=== PATIENT | female | born 1940 | race Caucasian/White ===

== ENCOUNTER 2016-09-19 14:37 | Inpatient (IN) | payer MEDICARE, OTHER ==
[2016-09-19] VITALS (8 sets, daily range): BP systolic 150–167; BP diastolic 68–95; PULSE 67–76; RESP 17–24; O2SAT 92–98
[~2016-09-19] VITALS: Ht 157.5 cm; Wt 89.4 kg
--- NOTE | 2016-09-19 15:09 | ED.REPORT ---
HPI-General Illness Date of Service Sep 19, 2016 ED Provider: Robin Covarrubias MD The patient is a 75 year old female with history of COPD uses 2L O2 PRN, hypertension, hyperlipidemia, coronary artery disease s/p stenting, and prior CTA with no residual deficits, who was sent to the emergency department after she had a failed outpatient stress test prior to arrival. The patient had decreased O2 sats and experienced chest pain and dyspnea during the test. She was on the treadmill for less than 2 minutes before she needed to stop. Her symptoms are worse with lying flat or exertion. When in the emergency department she also complains of blurred vision and headache. She was initially seen by the experimental mechanic [employer] for recent breathing problems. She denies history of a blood clot. Nursing Notes Stated Complaint: DECREASED 02 STAT Chief Complaint: Respiratory Distress Nursing Notes Reviewed: Yes Allergies: Coded Allergies: Penicillins (Verified Allergy, Severe, 09/19/16) codeine (Verified Allergy, Severe, 09/19/16) iodine (Verified Allergy, Severe, 09/19/16) ramipril (Verified Allergy, Severe, 09/19/16) General Time Seen by MD: 15:06 Chief Complaint Other (failed stress test) Hx Obtained From: Patient, Spouse Arrived By: Wheelchair Sudden in Onset?: Yes Onset Occurred: Just prior to arrival Symptom Duration: Since onset Location: : Chest: Head Quality: Painful Severity: Current: Moderate Severity: Maximum: Severe Relieved by: Rest Recent Healthcare: Recent doctor visit, Prior workup Similar Sx Previous: Yes Past Medical History Past Medical History Notes: PCP: Dr. Jackson in [place] [employer]: Dr. Bryan Past Medical History COPD on 2L O2 Skin cancer - resolved CVA Hypertension Hyperlipidemia Coronary artery disease Denies: Diabetes mellitus Past Surgical History Cardiac stents Family History Noncontributory Smoking History Former Smoker Social History Other Social History: Good social support, Local resident Ambulatory Status Independent Review of Systems Full Review of Systems Eyes: Reports: Blurred bilateral Respiratory: Reports: Dyspnea on exertion, Shortness of breath Cardiovascular: Reports: Chest pain, Dyspnea on exertion Neurologic: Reports: Headache, Vision change Complete sys rev & neg: except as marked. Physical Exam Vital Signs Vital Signs Date Time Temp Pulse Resp B/P Pulse Ox O2 Delivery O2 Flow Rate FiO2 09/19/16 16:49 70 17 150/83 93 Nasal Cannula 2 09/19/16 14:44 36.4 76 18 167/95 94 Nasal Cannula 2 Initial VS: Reviewed Head / Eyes: Atraumatic, Normocephalic, PERRL ENT: Mucous membranes moist, Conjunctiva normal, No scleral icterus Neck: Supple, Non-tender, Full range of motion Abdomen / GI: Soft, Non-tender, No guarding, No rebound, No distention Lymphatic: No lymphadenopathy Extremities: Vascular intact, Neuro intact Skin: Warm, Dry, No cyanosis Neurologic: Alert, Oriented, Nonfocal Psychiatric: Mood/affect normal, Behavior normal, Normal thought content General/Constitutional: Awake, Alert, Cooperative Respiratory / Chest: No respiratory distress Rales / Rhonchi: Positive: Rales R base Cardiovascular: Heart rate NL, Regular rhythm, Heart sounds NL, No gallop, No murmurs, No rubs, Cap refill not delayed, Peripheral circulation NL, Pulses = bilaterally, No gross BP differential Interpretation & Diagnostics Lab Results Interpretation Result Diagram: 09/19/16 1623 09/19/16 1623 Test 09/19/16 15:08 09/19/16 16:23 Hold Urine Received (Received) White Blood Count 7.5th/mm3 (3.8-10.1) Red Blood Count 4.03mil/mm3 (3.90-5.20) Hemoglobin 13.7g/dL (12.0-15.6) Hematocrit 41.8% (35.0-46.0) Mean Corpuscular Volume 103.7fL (81-100) Mean Corpuscular Hemoglobin 34.0pg (27.0-35.0) Mean Corpuscular Hemoglobin Concent 32.8% (32.0-37.0) Red Cell Distribution Width 13.3% (12.3-15.4) Platelet Count 248bil/L (150-400) Neutrophils (%) (Auto) 70.1% (40-74) Lymphocytes (%) (Auto) 16.6% (14-46) Monocytes (%) (Auto) 10.2% (4-12) Eosinophils (%) (Auto) 2.3% (0-5) Basophils (%) (Auto) 0.4% (0-3) D-Dimer 1.47mg/L FEU (<0.50) Sodium Level 139mEq/L (134-144) Potassium Level 4.2mEq/L (3.5-5.2) Chloride Level 98mEq/L (97-108) Carbon Dioxide Level 25mmol/L (18-29) Blood Urea Nitrogen 11mg/dL (8-27) Creatinine 0.50mg/dL (0.57-1.00) Estimat Glomerular Filtration Rate 171mL/min (>59) Glucose Level 96mg/dL (60-99) Calcium Level 9.3mg/dL (8.5-10.1) Magnesium Level 1.9mg/dL (1.6-2.6) Total Bilirubin 0.5mg/dL (0.0-1.2) Aspartate Amino Transf (AST/SGOT) 23U/L (0-50) Alanine Aminotransferase (ALT/SGPT) 15U/L (0-32) Alkaline Phosphatase 85U/L (25-165) Troponin T < 0.010ug/L (0.0-0.011) Total Protein 6.9g/dL (6.4-8.4) Albumin 3.8g/dL (3.4-5.0) Hold Hunter Top Tube Received (Received) ECG Interpretation ECG Interpretation: Sinus rhythm with a rate of 70 bpm Multiple PVCs Time: 15:41 Interpreted by: ED physician X-Ray Chest Interpretation Chest Xray Interpretation: IMPRESSION: 1. Cardiomegaly with mild vascular congestion. 2. Possible left basilar scarring/atelectasis. Superimposed pneumonia cannot be entirely excluded. Dictated by: Lenny Rodriguez M.D. on 09/19/2016 at 15:05 Interpretation / Wet Read by: Interpret - Radiologist Re-Eval/Medical Decision Med Decision/Clinical Course It is not clear to me whether or not this woman's symptoms are related to pulmonary embolism or coronary ischemia or COPD exacerbation. She failed her stress test today which of course begs the question of coronary ischemia. Her d -dimer is elevated and therefore I feel the need to definitively exclude pulmonary embolism with imaging. Unfortunately, she is iodine allergic and will require nuclear medicine scanning to evaluate pulmonary embolism. I am treating her with Lovenox for now while were waiting for the nuclear medicines test to be done. Based on her rule out labs over the next 24 hours the decision might be made regarding whether or not to pursue cardiac ischemia as the cause for her symptoms. For now we will admit her to telemetry and close observation. Source of Hx: Old records, Family, Private physician Time of Eval: 15:21 Re-Evaluation/Progress Note: Discussed plan for workup and admission. All questions were addressed. Time of Eval: 17:25 Re-Evaluation/Progress Note: Discussed plan for lung scan. Consultation : Referral / Consult Name: Tremaine Levin Consulted With: Hospitalist Requested Call at: 17:55 Service Coordinator: Will see patient, Agrees with eval, Agrees with plan, Accepts admit Counseled Regarding: Diagnosis, Lab results, Need for admission Discharge & Departure Primary Impression: Positive cardiac stress test Additional Impressions: Dyspnea Dyspnea type: dyspnea on exertion Qualified Code: R06.09 - Other forms of dyspnea Chest pain Chest pain type: unspecified Qualified Code: R07.9 - Chest pain, unspecified Disposition: ADMITTED TO HOSPITAL Discharge Condition All VS Reviewed: Yes Condition: Stable Referrals: Greg Jackson MD (PCP) Scribshanice Attestation Portions of this note were transcribed by Yarelis Vitale and Pooja Crowell. I, Dr. Coavrrubias personally performed the history, physical exam and medical decision-making; I reviewed and confirmed the accuracy of the information in the transcribed note. Signed by: Silvana Yancey, 09/19/2016 at 1800. Signed by: Silvana Goins, 09/19/16 1800. copies to: Greg Jackson MD, Kirk H MD Sep 19, 2016 15:09 Yarelis Vitale Sep 19, 2016 15:14 POOJA CROWELL Sep 19, 2016 17:57
[2016-09-19] MEDS ORDERED: DULoxetine 20 mg DR Capsule PO ONE (16:00)
--- NOTE | 2016-09-19 16:10 | DRSVH ---
PROCEDURE: X-RAY CHEST ONE VIEW, PORTABLE ([id number]) INDICATIONS: dyspnea TECHNIQUE: One view of the chest was acquired. COMPARISON: [facility], CR, XR CHEST 1VW (PORTABLE), 01/06/2016, 11:21. FINDINGS: Surgical changes and devices: None. Lungs and pleura: The aeration of the lungs is similar to the prior exam. The left diaphragm is not well seen, similar to the prior exam. There may be left basilar atelectasis. No definite pneumothor ax is appreciated. The pulmonary vasculature may be slightly prominent. Mediastinum: Mediastinal contours appear normal. Heart size is enlarged. Bones and chest wall: No suspicious bony lesions. Overlying soft tissues appear unremarkable. IMPRESSION: 1. Cardiomegaly with mild vascular congestion. 2. Possible left basilar scarring/atelectasis. Superimposed pneumonia cannot be entirely excluded. Dictated by: Lenny Rodriguez M.D. on 09/19/2016 at 15:05 Approved by: Lenny Rodriguez M.D. on 09/19/2016 at 15:08
[2016-09-19 16:29] LABS: BASOPHILS % (AUTO) 0.4 % (0-3); EOSINOPHILS % (AUTO) 2.3 % (0-5); MONOCYTES % (AUTO) 10.2 % (4-12); Mean Corpuscular Volume 103.7 fL (81-100); NEUTROPHILS % (AUTO) 70.1 % (40-74); Platelet Count 248 bil/L (150-400)
[2016-09-19 17:04] LABS: Magnesium 1.9 mg/dL (1.6-2.6)
[2016-09-19 17:11] LABS: TROPONIN T < 0.010 ug/L (0.0-0.011)
[2016-09-19] MEDS ORDERED: Alum-Mag Hydrox-Simeth 30 mL Suspension PO PRN ×2 (18:10→20:15)
[2016-09-19] MEDS ORDERED: Ondansetron 2 mg/mL 2 mL Inj IVPUSH PRN ×2 (18:10→20:15)
--- NOTE | 2016-09-19 18:51 | DRSVH ---
PROCEDURE: X-RAY CHEST, TWO VIEWS ([id number]) INDICATIONS: dyspnea TECHNIQUE: 2 views of the chest were acquired. COMPARISON: [facility], CR, XR CHEST 1VW (PORTABLE), 01/06/2016, 11:21. [facility]W (PORT[facility]), 09/19/2016, 15:31. FINDINGS: Surgical changes and devices: None. Lungs and pleura: No pleural effusions or pneumothorax. Scattered scarring/atelectasis. There is soraida ear left midlung opacity probably additional platelike atelectasis. Mediastinum: Cardiac silhouette and mediastinal contours are stable. Bones and chest wall: Mild anterior wedging of a midthoracic vertebral body, technically age-indeterm inate. Soft tissues appear unremarkable. IMPRESSION: Bibasilar scarring/atelectasis. Dictated by: Padilla Wheeler M.D. on 09/19/2016 at 18:47 Approved by: Padilla Wheeler M.D. on 09/19/2016 at 18:49
--- NOTE | 2016-09-19 19:46 | PCM.HPMED ---
Subjective Date of Service Sep 19, 2016 Primary Provider: Admitting Physician: Tremaine Levin Primary Care Physician: Greg Jackson MD Attending Physician: Tremaine Levin Admit Status: From the Emergency Department Chief Complaint: Chest pain, and difficulty breathing, shortness of breath, failed her cardiac stress test today due to the symptoms History of Present Illness: The patient is a pleasant 75 y/o F with history of COPD on 2L O2 at home PRN, hypertension, hyperlipidemia, coronary artery disease s/p SC and stenting X 1 vessel in 2008, and prior CVA in 2008 with no residual deficits, who was sented to the ED after she had a failed outpatient stress test prior to arrival. The patient had decreased O2 sats and experienced chest pain and dyspnea during the test. She was on the treadmill for less than 2 minutes before she needed to stop. Of note the patient states that she has been having symptoms of chest pain and pressure going on for several months now and worsening over the past couple of weeks. She describes the chest discomfort as a heaviness that is intermittent and further describes a band like pressure/pain across the chest and beneath her breasts no causes her to feel short of breath. She states that the chest pain occurs when she exerts herself or at rest. She describes the pain as an acid or gas sensation in her chest as well. Today she states that she began to feel lower back pain in association with her chest pain which is a new finding for her. Her troponin was negative and 0.010 in the ED. Associated symptoms include diaphoresis, chills, or productive cough for the last month or so productive of yellow to clear mucus, headache and some vision changes. Patient denies fevers, sore throats, headache, abdominal pain, constipation, diarrhea, nausea and vomiting. She states that she must sleep propped up 30 in bed at night otherwise she cannot sleep or breathes. She does deny paroxysmal nocturnal dyspnea. She was initially seen by the meeting planner for recent breathing problems. She denies history of a blood clot. Of note patient has iodine allergy and received contrast once in the past which reportedly stopped her heart. Patient was told never to have contrast again. In the ED: She had a d-dimer 1.47 Vital signs: Temperature 36.4, pulse 76, respiratory rate 18, blood pressure 167 /95 with map of 119, pulse 94% on 2 L Hemogram showed: The WBCs 7.5 PMNs 70.1%, lymphs 16.6%, H/H 13.7/41.8, platelets 248 Chemistry panel showed: Creatinine 0.50, BUN 11, sodium 139, potassium 4.2, chloride 98, CO2 25, glucose 96, Troponin was 0.010 and negative Pro calcitonin and was 0.04 EKG showed: Sinus rhythm with a rate of 70 bpm, with multiple PVCs, CXR showed:1. Cardiomegaly with mild vascular congestion.2. Possible left basilar scarring/atelectasis. Superimposed pneumonia cannot be entirely excluded. Review of Systems: A comprehensive review of systems was conducted and was negative except as mentioned in history of present illness. Allergies Coded Allergies: Penicillins (Verified Allergy, Severe, 09/19/16) codeine (Verified Allergy, Severe, 09/19/16) iodine (Verified Allergy, Severe, 09/19/16) ramipril (Verified Allergy, Severe, 09/19/16) Home Medications Patient does not have her current home medications list Will need to contact pharmacy in the AM The following is from a Medication list from clinic visit on 09/05/2016 On home oxygen 2 L when necessary Cetirizine 10 mg daily Fluoxetine 20 mg capsule delayed release takes 1 capsule by mouth daily Hydrocodone 2.5% topical cream 2 times every day to the affected area Ipratropium bromide 0.02% solution nebulized every 6 hours as needed Albuterol 1.25 mg per 3 mL solution nebulized Losartan 100 mg tablet every evening Metoprolol succinate ER 50 mg tablet syndrome release in the evening Ranitidine 150 mg tablet 2 times every day rosuvastatin 10 mg tablet daily Xopenex HFA 45 g 2 puffs every 6-8 hours as needed Symbicort 160 g 4.5 g 2 puffs 2 times every day PMH COPD on 2L O2 Skin cancer - resolved CVA 2008 SC 2008 Hypertension Hyperlipidemia Coronary artery disease Surgical History Cardiac stents 1 Family History Mother obesity, cardiac disease, SC Father unknown health issues to identify her Social History Hx Alcohol Use: Yes (rare) Hx Substance Use: No Hx Tobacco Use: Yes (Quit in 2002) Smoking Status: Former Smoker (20 years 2 packs per day) Exam Vital Signs Vital Sign - Last Date Time Temp Pulse Resp B/P Pulse Ox O2 Delivery O2 Flow Rate FiO2 09/19/16 19:25 72 20 162/88 95 Room Air 2 09/19/16 14:44 36.4 Exam General: Oriented 3, in moderate distress sitting at the side of the bed leaning somewhat forward, breathing is labored. HEENT: NC/AT, eyes, pupils pinpoint, PERRLA, EOMI, neck, soft supple, no adenopathy, no JVD, no masses, no thyromegaly, throat mucous membranes pink and moist, no erythema, no exudates, no tonsillar swelling, no uvular deviation. Lungs: Bilateral wheezes, lung bases with crackles no rhonchi, no adventitious lung sounds, no use of accessory muscles of respiration, good air movement, good respiratory effort. Heart: Regular rate and rhythm, no murmur, S1-S2 present, no rub, no click, no distant heart sounds, Abdomen: Soft, nontender, nondistended, bowel sounds active, no rebound, no guarding, and is obese Genitourinary: No CVA tenderness, no suprapubic tenderness, no Gonzalez catheter, Extremities: pulses diminished but equal and symmetric lower extremity including radial and dorsalis pedis, no edema, chronic skin changes secondary to prior history of lower extremity skin swelling Neurologic: Grossly neurologically intact, speaking in full sentences, no focal neurological signs, Skin: Skin on legs is scaly and erythematous but not warm to touch. Psychiatric: mood and affect are congruent and appropriate. Lab and Diagnostics Result Diagram: 09/19/16 1623 09/19/16 1623 X-Rays, CTs and MRIs Date of Service: 09/19/16 1717 PROCEDURE: X-RAY CHEST, TWO VIEWS Surgical changes and devices: None. Lungs and pleura: No pleural effusions or pneumothorax. Scattered scarring/ atelectasis. There is linear left midlung opacity probably additional platelike atelectasis. Mediastinum: Cardiac silhouette and mediastinal contours are stable. Bones and chest wall: Mild anterior wedging of a midthoracic vertebral body, technically age-indeterminate. Soft tissues appear unremarkable. IMPRESSION: Bibasilar scarring/atelectasis. Dictated by: Padilla Wheeler M.D. on 09/19/2016 at 18:47 Approved by: Padilla Wheeler M.D. on 09/19/2016 at 18:49 Date of Service: 09/19/16 1526 PROCEDURE: X-RAY CHEST ONE VIEW, PORTABLE INDICATIONS: dyspnea Surgical changes and devices: None. Lungs and pleura: The aeration of the lungs is similar to the prior exam. The left diaphragm is not well seen, similar to the prior exam. There may be left basilar atelectasis. No definite pneumothorax is appreciated. The pulmonary vasculature may be slightly prominent. Mediastinum: Mediastinal contours appear normal. Heart size is enlarged. Bones and chest wall: No suspicious bony lesions. Overlying soft tissues appear unremarkable. IMPRESSION: 1. Cardiomegaly with mild vascular congestion. 2. Possible left basilar scarring/atelectasis. Superimposed pneumonia cannot be entirely excluded. Dictated by: Lenny Rodriguez M.D. on 09/19/2016 at 15:05 Approved by: Lenny Rodriguez M.D. on 09/19/2016 at 15:08 Assessment & Plan # Chest pain, rule out acute coronary syndrome. - Patient failed outpatient cardiac stress test today prompting her visit to the ED. Patient went 2 minutes before having to stop to rest for shortness of breath and respiratory distress. She should experience band like chest pain and pressure across her chest during this time. - Troponin 0.010, will continue trend troponin X 3 - EKG showed: Sinus rhythm with a rate of 70 bpm, with multiple PVCs, - She has cardiac monitoring with remote telemetry - Lovenox started in ED, will transition to heparin with likely need for cath, cardiology consult by am team following VQ scan - Aspirin 325 once followed by 81 mg daily - We will wait on starting Plavix 300 mg once, followed by 75 mg daily - We will start 40 mg atorvastatin - Heart healthy diet # COPD exacerbation, present on admission, active - She is on 2 L O2 at baseline at home -Vital signs: Temperature 36.4, pulse 76, respiratory rate 18, blood pressure 167/95 with map of 119, pulse 94% on 2 L -The WBCs 7.5 PMNs 70.1%, lymphs 16.6%, H/H 13.7/41.8, platelets 248 -Pro calcitonin was 0.04 -CXR showed:1. Cardiomegaly with mild vascular congestion.2. Possible left basilar scarring/atelectasis. Superimposed pneumonia cannot be entirely excluded. -Patient with history of COPD, 20-25 of tobacco smoking 2 packs per day. -Patient was given single dose of by mouth prednisone [address] angiogram. The CT angios will not be performed as last time patient had contrast her heart stopped. -Sputum culture ordered. -ABG if needed -Continue supplemental oxygen as needed and slowly titrate off. Goal SpO2 88% - 92%. -Start 40 mg prednisone daily x 5 days. -Continue antibiotics including levofloxacin -Continue duo nebs 4 times a day while awake and albuterol nebs every 2 hours for shortness of breath. # Elevated d-dimer, present remission active - D-dimer 1.47 - Patient has contrast allergy and will avoid IV contrast. Patient states last time she had IV contrast her heart stopped. She was instructed never to have contrast again. - We will avoid CT angiogram - We will order nuclear VQ scan - We will order bilateral lower extremity Dopplers - heparin gtt - If patient's bilateral Dopplers and VQ scan are negative will contact cardiology Chronic Problems We will contact pharmacy for medication r reconciliation CVA 2008 SC 2008 Hypertension - No on home medication list Hyperlipidemia - No on home medication list Coronary artery disease -Status post stenting 2008 Disposition: Admitted to in patient service with expected length of stay greater than 2 days, secondary to severity of presenting symptoms, treatment plan, complexity of clinical work up, and risk of adverse events. CODE STATUS: Full code PCP: Dr. Greg Jackson M.D. DVT PE prophylaxis: Lovenox with pharmacy to dose for suspected PE Contact: [facility] Prophylaxis: Other (Lovenox) Resuscitation Status: CPR: Attempt Resuscitation Attending Statement The patient was seen and examined together with house staff on 09/19/2016 and I agree with the history, exam and plan as outlined in the note above. Karthik Hobbs DO Sep 19, 2016 19:46 Brandi Polo DO Sep 20, 2016 05:21
[2016-09-19 19:52] LABS: COLOR,URINE YELLOW (YELLOW)
[2016-09-19 19:53] LABS: APPEARANCE,URINE CLEAR (CLEAR,HAZY); OCCULT BLOOD,URINE NEGATIVE (NEGATIVE); PH,URINE 6.5 (5.0-8.0); UROBILINOGEN,URINE NORMAL (NORMAL)
[2016-09-19] MEDS ORDERED: 0.9% Sodium Chloride 1,000 ML IV SCH (20:05)
[2016-09-19] MEDS ORDERED: predniSONE 20 mg Tablet PO SCH (20:10)
[2016-09-19] MEDS ORDERED: Polyethylene Glycol (PEG) 17 Gm Powder PO PRN (20:15)
[2016-09-19] MEDS ORDERED: Albuterol-Ipratropium 3 mL Inhalation Solution NEB PRN (20:55)
--- NOTE | 2016-09-19 21:07 | PCM.CONPHA ---
Subjective Date of Service: Sep 19, 2016 Chest pain, and difficulty breathing, shortness of breath Reason for Pharmacy Consult: Anticoagulation Management Objective Vital Signs Date Time Temp Pulse Resp B/P Pulse Ox O2 Delivery O2 Flow Rate FiO2 09/19/16 19:43 36.7 67 22 165/68 94 Nasal Cannula 2.00 09/19/16 19:25 72 20 162/88 95 Room Air 2 09/19/16 19:18 72 20 162/88 95 Room Air 09/19/16 16:49 70 17 150/83 93 Nasal Cannula 2 09/19/16 14:44 36.4 76 18 167/95 94 Nasal Cannula 2 Weight (Kilograms): 89.400 Height (Feet): 5 Height (Inches): 2.00 Test 09/19/16 15:08 09/19/16 16:23 09/19/16 19:35 Hold Urine Received (Received) White Blood Count 7.5th/mm3 (3.8-10.1) Red Blood Count 4.03mil/mm3 (3.90-5.20) Hemoglobin 13.7g/dL (12.0-15.6) Hematocrit 41.8% (35.0-46.0) Mean Corpuscular Volume 103.7fL (81-100) Mean Corpuscular Hemoglobin 34.0pg (27.0-35.0) Mean Corpuscular Hemoglobin Concent 32.8% (32.0-37.0) Red Cell Distribution Width 13.3% (12.3-15.4) Platelet Count 248bil/L (150-400) Neutrophils (%) (Auto) 70.1% (40-74) Lymphocytes (%) (Auto) 16.6% (14-46) Monocytes (%) (Auto) 10.2% (4-12) Eosinophils (%) (Auto) 2.3% (0-5) Basophils (%) (Auto) 0.4% (0-3) D-Dimer 1.47mg/L FEU (<0.50) Sodium Level 139mEq/L (134-144) Potassium Level 4.2mEq/L (3.5-5.2) Chloride Level 98mEq/L (97-108) Carbon Dioxide Level 25mmol/L (18-29) Blood Urea Nitrogen 11mg/dL (8-27) Creatinine 0.50mg/dL (0.57-1.00) Estimat Glomerular Filtration Rate 171mL/min (>59) Glucose Level 96mg/dL (60-99) Calcium Level 9.3mg/dL (8.5-10.1) Magnesium Level 1.9mg/dL (1.6-2.6) Total Bilirubin 0.5mg/dL (0.0-1.2) Aspartate Amino Transf (AST/SGOT) 23U/L (0-50) Alanine Aminotransferase (ALT/SGPT) 15U/L (0-32) Alkaline Phosphatase 85U/L (25-165) Troponin T < 0.010ug/L (0.0-0.011) Total Protein 6.9g/dL (6.4-8.4) Albumin 3.8g/dL (3.4-5.0) Procalcitonin 0.04ng/mL (0.00-0.08) Hold Hunter Top Tube Received (Received) Urine Color Yellow (YELLOW) Urine Appearance Clear (CLEAR,HAZY) Urine pH 6.5 (5.0-8.0) Urine Specific [place] 1.005 (1.003-1.035) Urine Protein Negativemg/dL (NEG,TRACE) Urine Glucose (UA) Negativemg/dL (NEGATIVE) Urine Ketones Negativemg/dL (NEGATIVE) Urine Occult Blood Negative (NEGATIVE) Urine Nitrite Negative (NEGATIVE) Urine Bilirubin Negative (NEGATIVE) Urine Urobilinogen Normalmg/dL (NORMAL) Urine Leukocyte Esterase Negative (NEGATIVE) Urine RBC 0-2/hpf (0-2) Urine WBC 0-5/hpf (0-5) Urine Epithelial Cells Few/hpf (NONE-MOD) Urine Crystals None seen (NONE SEEN) Urine Bacteria Few/hpf (NONE-FEW) Urine Hyaline Casts None/lpf (NONE) Urine Granular Casts None seen (NONE SEEN) Urine Waxy Casts None seen (NONE SEEN) Urine Red Blood Cell Casts None seen (NONE SEEN) Urine White Blood Cell Casts None seen (NONE SEEN) Urine Mucus None seen (None Seen) Urine Trichomonas None seen (NONE SEEN) Urine Yeast None (NONE SEEN) Urinalysis Comment None Urine Culture Reflexed Not indicated Assessment/Plan Assessment/Plan ENOXAPARIN MANAGEMENT A\ 75YOU F ADMITTED FOR PE PT HISTORY OF COPD AND CAD W/ STENTS PT RECEIVED ENOXAPARIN 80MG (1MG/KG) SUBQ X 1 IN ER AT 1720 SCR=0.5 GFR=>100 Test 09/19/16 15:08 09/19/16 16:23 09/19/16 19:35 Hold Urine Received (Received) White Blood Count 7.5th/mm3 (3.8-10.1) Red Blood Count 4.03mil/mm3 (3.90-5.20) Hemoglobin 13.7g/dL (12.0-15.6) Hematocrit 41.8% (35.0-46.0) Mean Corpuscular Volume 103.7fL (81-100) Mean Corpuscular Hemoglobin 34.0pg (27.0-35.0) Mean Corpuscular Hemoglobin Concent 32.8% (32.0-37.0) Red Cell Distribution Width 13.3% (12.3-15.4) Platelet Count 248bil/L (150-400) Neutrophils (%) (Auto) 70.1% (40-74) Lymphocytes (%) (Auto) 16.6% (14-46) Monocytes (%) (Auto) 10.2% (4-12) Eosinophils (%) (Auto) 2.3% (0-5) Basophils (%) (Auto) 0.4% (0-3) D-Dimer 1.47mg/L FEU (<0.50) Sodium Level 139mEq/L (134-144) Potassium Level 4.2mEq/L (3.5-5.2) Chloride Level 98mEq/L (97-108) Carbon Dioxide Level 25mmol/L (18-29) Blood Urea Nitrogen 11mg/dL (8-27) Creatinine 0.50mg/dL (0.57-1.00) Estimat Glomerular Filtration Rate 171mL/min (>59) Glucose Level 96mg/dL (60-99) Calcium Level 9.3mg/dL (8.5-10.1) Magnesium Level 1.9mg/dL (1.6-2.6) Total Bilirubin 0.5mg/dL (0.0-1.2) Aspartate Amino Transf (AST/SGOT) 23U/L (0-50) Alanine Aminotransferase (ALT/SGPT) 15U/L (0-32) Alkaline Phosphatase 85U/L (25-165) Troponin T < 0.010ug/L (0.0-0.011) Total Protein 6.9g/dL (6.4-8.4) Albumin 3.8g/dL (3.4-5.0) Procalcitonin 0.04ng/mL (0.00-0.08) Hold Hunter Top Tube Received (Received) Urine Color Yellow (YELLOW) Urine Appearance Clear (CLEAR,HAZY) Urine pH 6.5 (5.0-8.0) Urine Specific [place] 1.005 (1.003-1.035) Urine Protein Negativemg/dL (NEG,TRACE) Urine Glucose (UA) Negativemg/dL (NEGATIVE) Urine Ketones Negativemg/dL (NEGATIVE) Urine Occult Blood Negative (NEGATIVE) Urine Nitrite Negative (NEGATIVE) Urine Bilirubin Negative (NEGATIVE) Urine Urobilinogen Normalmg/dL (NORMAL) Urine Leukocyte Esterase Negative (NEGATIVE) Urine RBC 0-2/hpf (0-2) Urine WBC 0-5/hpf (0-5) Urine Epithelial Cells Few/hpf (NONE-MOD) Urine Crystals None seen (NONE SEEN) Urine Bacteria Few/hpf (NONE-FEW) Urine Hyaline Casts None/lpf (NONE) Urine Granular Casts None seen (NONE SEEN) Urine Waxy Casts None seen (NONE SEEN) Urine Red Blood Cell Casts None seen (NONE SEEN) Urine White Blood Cell Casts None seen (NONE SEEN) Urine Mucus None seen (None Seen) Urine Trichomonas None seen (NONE SEEN) Urine Yeast None (NONE SEEN) Urinalysis Comment None Urine Culture Reflexed Not indicated P\ WILL CONTINUE THE ENOXAPARIN 80MG SUBQ Q12H WITH NEXT DOSE AT 0600 09/20 PT WILL BE GETTING IMAGING 09/20 Clay Batres [facility] Sep 19, 2016 21:07
[2016-09-19] MEDS ORDERED: predniSONE 20 mg Tablet PO ONE (21:37)
--- NOTE | 2016-09-19 22:43 | NUR ---
MED REC NOT COMPLETED Pt did not bring in home med list. Pt asked if she would be able to recall or confirm medications from past records, pt states, "no I wouldn't be able to tell you." Pts pharmacy in [place] will be called after the holiday to try to obtain current med list, .
--- NOTE | 2016-09-19 22:48 | NUR ---
ADMIT NOTE Pt arrived to [facility] Room 3004 approx 1930. Pt able to ambulate, slow but steady. VS obtained. Pt placed on remote telemetry, school lunch monitor notified. Pt placed on 2L, as pt uses 2L at home intermittently and oxygen saturations mid 80s on RA. Pt placed on CPOx d/t high risk JAMI. Pt does not have c/o pain now. Pt did have c/o dyspnea, uses nebulizer treatments at home. Admitting resident notified, ordered prn nebs. RT administered neb treatment, pt states relief of dyspnea. Continue to monitor. Call light in reach. Bed alarm on. Intentional rounding.
[2016-09-20] VITALS (12 sets, daily range): BP systolic 132–164; BP diastolic 7–74; PULSE 55–88; RESP 20–24; O2SAT 92–96
[2016-09-20] MEDS ORDERED: Albuterol 2.5 mg/3 mL Inhalation Solution NEB PRN (00:10)
[2016-09-20] MEDS: Albuterol-Ipratropium 3 mL Inhalation Solution NEB SCH ×5 (01:45→21:01)
[2016-09-20] MEDS ORDERED: predniSONE 20 mg Tablet PO ONE ×2 (02:00→08:00)
[2016-09-20 05:29] LABS: BASOPHILS % (AUTO) 0.1 % (0-3); EOSINOPHILS % (AUTO) 0 % (0-5); MONOCYTES % (AUTO) 1.3 % (4-12); Mean Corpuscular Hemoglobin 33.3 pg (27.0-35.0); Mean Corpuscular Volume 103.1 fL (81-100); Platelet Count 273 bil/L (150-400)
--- NOTE | 2016-09-20 05:53 | NUR ---
HEPARIN GTT Heparin drip, cardiac protocol to be initiated 09/20/16 @ 1500. Lovenox SQ injection administered 09/20/16 ~0500, heparin gtt cannot be started until ~12hrs after lovenox injection per pharmacy. Baseline PTT should be ordered closest to start time of heparin gtt per pharmacy, baseline ptt ordered for 09/20/16 @ 1400. Q6H ptt heparin needs to be ordered after start of heparin gtt, info will be relayed to oncoming shift.
--- NOTE | 2016-09-20 07:39 | DRSVH ---
PROCEDURE: US VENOUS LEG DUPLEX BILATERAL INDICATIONS: Ddimer, TECHNIQUE: Real-time imaging, as well as color and pulse Doppler interrogation, were performed of the deep veins of both legs from the inguinal ligament to the popliteal fossa. COMPARISON: [facility], US, US VENOUS LEG DPLX UNI LT, 03/30/2016, 14:50. FINDINGS: The deep veins are normally compressible, and free of intraluminal thrombus. Color and pu lse Doppler demonstrate normal phasic intravascular flow. There is normal augmentation response to d istal compression maneuver. IMPRESSION: No deep venous thrombus in either lower extremity. Dictated by: Ralph Butterfield M.D. on 09/20/2016 at 7:31 Approved by: Ralph Butterfield M.D. on 09/20/2016 at 7:31
[2016-09-20] MEDS ORDERED: diphenhydrAMINE 25 mg Capsule PO ONE (08:00)
[2016-09-20] MEDS: predniSONE 20 mg Tablet PO SCH (08:51)
--- NOTE | 2016-09-20 09:05 | NUR ---
lung scan delayed NM called and stated that the lung scan can not be done until 48 hours after her heart scan. MD notified of situation.
--- NOTE | 2016-09-20 11:01 | NUR ---
Social Work-initial assessment: Data:See initial assessment. Pt is a 75 y/o female who was admitted on 09/19/16 for dypsnea per H&P. Pt's insurance is [employer] and PCP is Greg Jackson MD. EMR Reviewed. SW met with pt to discuss discharge planning, SW role explained. Pt is alert and oriented x3. Pt resides at [facility] where she remains independent with ADLS. Pt occasionally uses a fww at baseline and does drive. Pt has home O2 for night use through [employer]. Pt has no HH or SNF history. Pt has no fci or VA benefits. Pt states she has completed DPOA/ advanced directive paperwork, SW encouraged a copy to be brought in. Pt states her NOK is son Serge Rock [phone] or [phone], asked admissions to add this information. Pt confirms that her friend [employer] [phone] will provide transport back to [facility] at discharge. SW provided pt with discharge planning checklist booklet and encouraged pt to call SW with any questions. Phone number and plan written on white board in the room. SW will continue to follow. Assessment:Pt who is independent at baseline. Plan:Pt to discharge back to [facility] when medically stable. SW will continue to follow. AMY Duenas Addendum: 09/20/16 at 1107 by BEAN TORRES SS Amended: Links added.
--- NOTE | 2016-09-20 11:48 | NUR ---
headache pt complains of a headache since having some imaging done in the room. paged, waiting on orders.
--- NOTE | 2016-09-20 12:16 | PCM.PNMED ---
Subjective Date of Service Sep 20, 2016 Subjective Denies any new issues/complaints. No CP or SOB overnight Exam Vital Signs Vital Sign - Last Date Time Temp Pulse Resp B/P Pulse Ox O2 Delivery O2 Flow Rate FiO2 09/20/16 10:13 62 09/20/16 09:59 Supplement Oxygen 09/20/16 09:34 36.7 24 146/72 92 2.00 Intake and Output 09/19/16 09/19/16 09/20/16 Cumulative From/Thru 15:00 23:00 07:00 09/19/16 14:44 - 09/20/16 06:21 Intake Total 663 ml 663 ml Output Total 1330 ml 1330 ml Balance -667 ml -667 ml Intake Oral 663 ml 663 ml Output Urine Total 1330 ml 1330 ml # Bowel Movements 2 2 General: Alert, Cooperative, No Acute Distress Head: Normal Eyes: Scleral Anicteric Nose: Mucous Membr Moist/Rhodes Mouth: Mucous Membr Moist/Rhodes Neck: Supple Chest & Lungs: Chest Wall Normal, Clear to auscultation & percussion Cardiovascular: Regular Rate/Rhythm Pulses: NL carotid, radial, femoral, DP, PT Abdomen: Non-tender, Non-distended, Normoactive bowel tones, Soft Extremities: No cyanosis/clubbing/edma bilat Neurological: Grossly Neurologically Intact, Normal Speech Additional Information: Psych: Calm, appropriate IVs and Medications Medications Reviewed: Medications were reviewed in detail Lab and Diagnostics Result Diagram: 09/20/16 0515 09/20/16 0515 X-Rays, CTs and MRIs Date of Service: 09/19/16 1717 PROCEDURE: X-RAY CHEST, TWO VIEWS Surgical changes and devices: None. Lungs and pleura: No pleural effusions or pneumothorax. Scattered scarring/ atelectasis. There is linear left midlung opacity probably additional platelike atelectasis. Mediastinum: Cardiac silhouette and mediastinal contours are stable. Bones and chest wall: Mild anterior wedging of a midthoracic vertebral body, technically age-indeterminate. Soft tissues appear unremarkable. IMPRESSION: Bibasilar scarring/atelectasis. Dictated by: Padilla Wheeler M.D. on 09/19/2016 at 18:47 Approved by: Padilla Wheeler M.D. on 09/19/2016 at 18:49 Date of Service: 09/19/16 1526 PROCEDURE: X-RAY CHEST ONE VIEW, PORTABLE INDICATIONS: dyspnea Surgical changes and devices: None. Lungs and pleura: The aeration of the lungs is similar to the prior exam. The left diaphragm is not well seen, similar to the prior exam. There may be left basilar atelectasis. No definite pneumothorax is appreciated. The pulmonary vasculature may be slightly prominent. Mediastinum: Mediastinal contours appear normal. Heart size is enlarged. Bones and chest wall: No suspicious bony lesions. Overlying soft tissues appear unremarkable. IMPRESSION: 1. Cardiomegaly with mild vascular congestion. 2. Possible left basilar scarring/atelectasis. Superimposed pneumonia cannot be entirely excluded. Dictated by: Lenny Rodriguez M.D. on 09/19/2016 at 15:05 Approved by: Lenny Rodriguez M.D. on 09/19/2016 at 15:08 Assessment & Plan 75 y/o F with history of COPD on 2L O2 at home PRN, hypertension, hyperlipidemia , coronary artery disease s/p AR and stenting X 1 vessel in 2008, and prior CVA in 2008 with no residual deficits, who was sented to the ED after she had a failed outpatient stress test prior to arrival. The patient had decreased O2 sats and experienced chest pain and dyspnea during the test. She was on the treadmill for less than 2 minutes before she needed to stop. # Acute chest pain, present on admission. Resolved - Ruled out for acute coronary syndrome with negative Trop - Patient failed outpatient cardiac stress test on day of admit prompting her visit to the ED. - D-Dimer was positive in ED and obtaining cardiology consult is now pending ruling out PE first - Unable to obtain CTA due to report of sever allergy to contrast - Unable to get VQ scan today due to stress test contrast less than 48h ago. Plan for VQ scan tomorrow - Continue with ASA + Plavix + Atorvastatin - Consider cardiology consult tomorrow pending VQ scan result # COPD exacerbation, present on admission. Resolved - She is on 2 L O2 at baseline at home - Continue supplemental oxygen. Goal SpO2 88% - 92%. - Continue with 40 mg prednisone daily x 5 days (started on admission) - No evidence of active infection. Stop Levofloxacin that was started on admission. - Continue duo nebs 4 times a day while awake and albuterol nebs every 2 hours for shortness of breath. # Elevated d-dimer, present remission active - Workup as noted above - Have very low suspicion for PE or any clot given patient tells me that she is physically active at baseline and her chest pain has been intermittent for the past couple of month, non-pleuritic, and feeling like indigestion. Not sure why D-Dimer was ordered but will pursue workup as noted above. Chronic Stable Problems: # CVA 2008 # AR 2008 # Hypertension # Hyperlipidemia # Coronary artery disease - Status post stenting 1 in 2008 Dispo: likely 2-3 days pending pulmonary and cardiac workup noted above VTE Prophylaxis: Other (Lovenox) VTE Mechanical Devices: Venous Foot Pump Resuscitation Status: CPR: Attempt Resuscitation Tremaine Levin Sep 20, 2016 12:16 PCP: Dr. Greg Jackson M.D. DVT PE prophylaxis: Lovenox with pharmacy to dose for suspected PE Contact: VTE Prophylaxis: Other (Lovenox) VTE Mechanical Devices: Venous Foot Pump Resuscitation Status: CPR: Attempt Resuscitation Tremaine Levin Sep 20, 2016 12:16 Disposition: Admitted to in patient service with expected length of stay greater than 2 days, secondary to severity of presenting symptoms, treatment plan, complexity of clinical work up, and risk of adverse events. CODE STATUS: Full code PCP: Dr. Greg Jackson M.D. DVT PE prophylaxis: Lovenox with pharmacy to dose for suspected PE Contact: VTE Prophylaxis: Other (Lovenox) VTE Mechanical Devices: Venous Foot Pump Resuscitation Status: CPR: Attempt Resuscitation Tremaine Levin Sep 20, 2016 12:16
--- NOTE | 2016-09-20 12:50 | NUR ---
anxiety pt states that she experiences anxiety with breathing treatment and when she has to wear a mask in general. She refuses medication now, but wanted us to be aware of the situation.
--- NOTE | 2016-09-20 14:50 | DRSVH ---
[facility] [address] [place] [address] Echocardiogram Report Name: SASHA JIN IStudy Date: 09/20/2016 Height: 62 in Hospital Exam Location: [facility] Weight: 197 lb Gender: Female BSA: 1.9 m2 : 1940 Age: 75 yrs BP: 162/74 mmHg Reason For Study: POSITIVE STRESS TEST Ordering Physician: SUGEY GOMEZ Performed By: Nicholas Mcnulty Referring Physician: Greg Jackson Interpretation Summary Left ventricular systolic function is normal without focal wall motion abnormalities with the ejection fraction visually estimated to be 60-65%. There is mild concentric left ventricular hypertrophy and assessment of diastolic parameters indicates a relaxation abnormality of the left ventricle, consistent with normal filling pressures, likely significantly lower compared to the previous study. The right ventricle is normal size with probable borderline right ventricular hypertrophy. Right ventricular systolic function is at the lower limits of normal and appears slightly less dynamic compared to the previous study. Pulmonary artery pressures cannot be estimated because of the lack of a measurable TR jet velocity but the IVC suggests a low right atrial pressure of 3 mm Hg. Right atrial size is normal and the left atrium is moderately dilated, but both are unchanged compared to the previous study. There is no significant valvular heart disease. The aortic arch is mildly enlarged but is unchanged compared to the previous study. There is an anterior echo-free space consistent with a fat pad. Procedure: A two-dimensional transthoracic echocardiogram with color flow and Doppler was performed. The study quality was technically adequate. Comparison is made with the echocardiogram of 01/06/16. The patient was in normal sinus rhythm during the exam. Left Ventricle: The left ventricle is normal in size. There is mild concentric left ventricular hypertrophy. Left ventricular systolic function is normal without focal wall motion abnormalities. The ejection fraction is estimated to be 60-65%. Assessment of diastolic parameters indicates a relaxation abnormality of the left ventricle, consistent with normal filling pressures. This is likely significantly lower compared to the previous study. Right Ventricle: The right ventricle is normal size. There is borderline right ventricular hypertrophy. Right ventricular systolic function is at the lower limits of normal. This is slightly less dynamic compared to the previous study. Atria: The left atrium is moderately dilated. Right atrial size is normal. This is unchanged compared to the previous study. The interatrial septum is intact with no evidence for an atrial septal defect. Mitral Valve: The mitral valve is normal in structure and function. There is trace mitral regurgitation. This is unchanged compared to the previous study. Aortic Valve: The aortic valve is trileaflet. The aortic valve is slightly calcified. Leaflet mobility is minimally reduced. There is no hemodynamically significant valvular aortic stenosis. There is trace aortic regurgitation. This is unchanged compared to the previous study. Tricuspid Valve: The tricuspid valve is normal in structure and function. There is trace tricuspid regurgitation. This is unchanged compared to the previous study. Pulmonary artery pressures cannot be estimated because of the lack of a measurable TR jet velocity. Pulmonic Valve: The pulmonic valve is not well visualized. There is no pulmonic valvular regurgitation. There is no significant valvular heart disease. Great Vessels: The aortic root is normal size. The dimensions of the ascending aorta are normal. The aortic arch is mildly enlarged. This is unchanged compared to the previous study. The pulmonary artery is normal size. The IVC is of normal diameter and collapses greater than 50% with a sniff. This suggests a low right atrial pressure of 3 mm Hg. Pericardium/ Pleura There is no pericardial effusion. There is an anterior echo-free space consistent with a fat pad. There is no pleural effusion. MMode/2D Measurements & Calculations LVIDd: 5.5 cm LA dimension: 4.6 cm RA long axis Ao root diam LVIDs: 3.8 cm FS: 29.8 % LA A2 area: 24.2 cm RA area Aortic Jxn: 2.8 cm EPSS: 0.98 cm LA A4 area: 25.1 cm asc Aorta Diam IVSd: 1.1 cm LA length (vol) : 19.0 cm LVPWd: 1.2 cm RA vol Ao Arch Diam (Prox LA vol: 80.1 ml : 57.7 ml Trans): 3.1 cm LA vol index RA : 30.4 mm2 IVC diam: 2.0 cm LV fernandez. diameter/BSA LV sys. diameter/BSA (cm/m^2): 2.9 (cm/m^2): 2.0 Doppler Measurements & Calculations Ao V2 max MV E max hari MV E/A: 0.55 PA V2 max: 95.3 cm/sec : 176.8 cm/sec : 48.4 cm/sec Med Peak E' Hari PA mean P.9 mmHg Ao max PG MV A max hari PA Accel Time: 0.08 sec : 12.5 mmHg : 87.3 cm/sec E/E' med: 11.9 Ao mean PG Pulm A Revs Dur : 6.8 mmHg MV A dur: 0.11 sec MV dec time Ao V2 mean PA V2 mean Pulm A Revs Dur - MV A : 0.38 sec : 124.7 cm/sec : 66.7 cm/sec Dur: 0.01 msec Ao V2 VTI: 40.8 cmPA pr(Accel) : 36.2 mmHg Reading Physician:02:49 PM
[2016-09-20] MEDS ORDERED: Heparin 5,000 Unit/mL Inj IVPUSH PRN (15:00)
[2016-09-20] MEDS ORDERED: Heparin 25K Unit/500mL 0.45 NS 25,000 UNIT in IV Premix 1 EACH IV SCH (15:00)
[2016-09-21] VITALS (13 sets, daily range): BP systolic 127–162; BP diastolic 67–84; PULSE 55–93; RESP 20–22; O2SAT 92–99
--- NOTE | 2016-09-21 03:34 | NUR ---
Heparin, Restlessness: Heparin drip infusing, no change after last PTT result. Pt had concerns about the Heparin "after talking to a friend". Pt educated on the Heparin and why the lab monitoring was being done, stated understanding and was more comfortable with its use. Has been restless tonight, "tossing and turning" in bed, tangling up cords and needing assistance straightening them up frequently. Melatonin and Tylenol administered to help assist with sleep. Upon last check a few minutes ago, pt was still awake. Addendum: 09/21/16 at 0532 by GISELLE SMITH RN Tylenol did not help pt sleep. Pt reported that at home, she has had trouble sleeping the last "3 months" and only sleeps from [id number]. Pt is very tired and continues to try to sleep at this time.
[2016-09-21] MEDS: Albuterol-Ipratropium 3 mL Inhalation Solution NEB SCH ×4 (07:44→20:48)
[2016-09-21] MEDS: predniSONE 20 mg Tablet PO SCH (08:07)
--- NOTE | 2016-09-21 10:10 | NUR ---
[facility] signed
--- NOTE | 2016-09-21 10:48 | NUR ---
Social Work-readiness for discharge: data:EMR reviewed. Pt is on day 2 of hospitalization for Dypsnea per H&P. Pt is not medically stable anticipate 1-2 days. Pt resides at [facility]. Pt does use o2 at baseline. Per RN notes, pt has been up independent in her room. Pt's friend to transport pt at discharge. No anticipated discharge needs. SW will continue to follow if needs arise. Assessment:Pt who is independent at baseline. Plan:Pt to discharge back to [facility] when medically stable via POV. No anticipated discharge needs. SW will continue to follow if needs arise. AMY Duenas
--- NOTE | 2016-09-21 13:27 | DRSVH ---
PROCEDURE: CT CHEST WITHOUT CONTRAST ([id number]) INDICATIONS: Short of breath TECHNIQUE: Noncontrast 5 mm thick sections acquired from the pulmonary apices to the posterior costophrenic angl es. 7 mm thick coronal and sagittal MIP reformats were then acquired. For radiation dose reduction, the following was used: automated exposure control, adjustment of mA and/or kV according to patient size. COMPARISON: [facility], CR, CHEST 2VW, 07/14/2014, 13:47. [facility], CR, X R CHEST 2VW, 09/19/2016, 17:44. [facility], CT, ABD/PELVIS W/O CON (PNL), 06/08/2015, 15: 52. [facility], CT, CHEST W/O CONTRAST, 12/28/2012, 9:14. [facility], CT, CHEST/ABD/PELVIS/ WO CON, 05/19/2011, 18:06. FINDINGS: Image quality: Excellent. Lungs and pleura: There is mild centrilobular emphysema. Subpleural fibrotic changes are noted within the midlungs, more conspicuous on the right. A 6 mm pleural-based nodule is present at the left apex (series 3, image 4 and series 602, image 23). No other pulmonary nodules. No acute air space opaciti es. No pleural effusion or pneumothorax. Mediastinum: Heart size is enlarged. No pericardial effusion. No mediastinal adenopathy by size cri teria. Thoracic aorta and central pulmonary arteries are normal in size. Scattered atheromatous calc ifications are present within the aortic arch. Esophagus is normal in caliber. No hiatal hernia. Bones and chest wall: No suspicious bony lesions a mild wedge compression deformity is present at th e superior T6 endplate unchanged from prior studies. No axillary or supraclavicular adenopathy by siz e criteria. Thyroid gland is unremarkable. Abdomen: A probable renal cystic lesion is present in the right midpole and is incompletely characte rized on this limited view without contrast. Visualized upper abdominal solid organs and bowel loops appear otherwise normal in the absence of contrast. IMPRESSION: 1. 6 mm left apical pulmonary nodule not visualized on prior studies. Please see followup guidelines below. 2. Mild centrilobular emphysema and probable early fibrotic changes.. No other findings to explain dy spnea. Fleischner Society criteria for SOLID lung nodule followup. Nodule size (mm)Low-risk patientHigh-risk [id number] follow-up neededFollow-up at 12 mo; if no jones e, no further follow-up>8-8Qgletm-ru CT at 12 mo; if no change, no further follow-up needed.Initial f ollow-up CT at 6-12 mo, then 18-24 mo if no change. >6-8Initial follow-up CT at 6-12 mo, then 18-24 mo if no change. Initial follow-up CT at 3-6 mo, then 9-12 mo and 24 mo if no change. >8Follow-up CT at 3, 9, 24 mo. Or PET and/or biopsy.Same as for low-risk pts. Fleischner Society criteria for SUB-SOLID lung nodule followup. Solitary pure ground-glass nodules5 mm or lessNo followup needed. >5 mm3 mo follow-up CT to confirm persistence. Then annual CT for 3 years. Part-solid nodules3 mo follow-up CT to confirm persistence . If persistent with solid component <5 mm, annual CT for at least 3 years. If solid component is 5 mm or more, biopsy or surgical resection. Consider PET-CT for lesions > 10 mm. Multiple sub-solid nodulesPure ground glass nodules [address] at 2 and 4 years. Pure ground glass nodules >5 mm without dominant lesion. [address] to confirm persistence, then annual followup CT for at least 3 years. Dominant nodule(s) with part-solid or solid component. [address] to confirm persistence. If persistent, consider biopsy or surgical resection, tom if lesions have >5 m m solid component. Dictated by: Kim Reyes M.D. on 09/21/2016 at 13:11 Approved by: Kim Reyes M.D. on 09/21/2016 at 13:25
--- NOTE | 2016-09-21 13:42 | NUR ---
DC Heparin Patient had aPTT heparin drawn as protocol. aPTT came back as >240 at 1056. Heparin was stopped by nurse. MD was in room at that time and was notified of critical results. Heparin drip was discontinued by .
--- NOTE | 2016-09-21 14:20 | NUR ---
V-Tach central lab technician sent rhythm strip up to nurse showing 3 beats non-sustained V-Tach at 1134. Patient remained asymptomatic. was notified
--- NOTE | 2016-09-21 14:35 | PCM.PNMED ---
Subjective Date of Service Sep 21, 2016 Subjective Patient seen and examined. Having hard time breathing when lying down. Able to sit up and take deep breaths. She said this has been going on for about 5-6 months. Saturating 88+ on nasal canula. Exam Vital Signs Vital Sign - Last Date Time Temp Pulse Resp B/P Pulse Ox O2 Delivery O2 Flow Rate FiO2 09/21/16 14:18 70 09/21/16 13:41 36.9 22 127/67 92 Nasal Cannula 2.00 Intake and Output 09/20/16 09/20/16 09/21/16 Cumulative From/Thru 15:00 23:00 07:00 09/19/16 14:44 - 09/21/16 06:29 Intake Total 1525 ml 531 ml 2719 ml Output Total 1775 ml 850 ml 3955 ml Balance -250 ml -319 ml -1236 ml Intake Oral 1525 ml 200 ml 2388 ml IV Total 331 ml 331 ml Output Urine Total 1775 ml 850 ml 3955 ml # Bowel Movements 2 1 5 Exam General: Alert, Cooperative, No Acute Distress Head: Normal Eyes: Scleral Anicteric Nose: Mucous Membr Moist/[place] Mouth: Mucous Membr Moist/[place] Neck: Supple Chest & Lungs: Chest Wall Normal, Clear to auscultation & percussion. No wheezing or crackles heard. Cardiovascular: Regular Rate/Rhythm Pulses: NL carotid, radial, femoral, DP, PT Abdomen: Non-tender, Non-distended, Normoactive bowel tones, Soft Extremities: No cyanosis/clubbing/edma bilat Neurological: Grossly Neurologically Intact, Normal Speech Additional Information: Psych: Calm, appropriate Lab and Diagnostics Result Diagram: 09/20/16 0515 09/20/16 0515 X-Rays, CTs and MRIs Date of Service: 09/19/16 8143 PROCEDURE: X-RAY CHEST, TWO VIEWS Surgical changes and devices: None. Lungs and pleura: No pleural effusions or pneumothorax. Scattered scarring/ atelectasis. There is linear left midlung opacity probably additional platelike atelectasis. Mediastinum: Cardiac silhouette and mediastinal contours are stable. Bones and chest wall: Mild anterior wedging of a midthoracic vertebral body, technically age-indeterminate. Soft tissues appear unremarkable. IMPRESSION: Bibasilar scarring/atelectasis. Dictated by: Padilla Wheeler M.D. on 09/19/2016 at 18:47 Approved by: Padilla Wheeler M.D. on 09/19/2016 at 18:49 Date of Service: 09/19/16 1526 PROCEDURE: X-RAY CHEST ONE VIEW, PORTABLE INDICATIONS: dyspnea Surgical changes and devices: None. Lungs and pleura: The aeration of the lungs is similar to the prior exam. The left diaphragm is not well seen, similar to the prior exam. There may be left basilar atelectasis. No definite pneumothorax is appreciated. The pulmonary vasculature may be slightly prominent. Mediastinum: Mediastinal contours appear normal. Heart size is enlarged. Bones and chest wall: No suspicious bony lesions. Overlying soft tissues appear unremarkable. IMPRESSION: 1. Cardiomegaly with mild vascular congestion. 2. Possible left basilar scarring/atelectasis. Superimposed pneumonia cannot be entirely excluded. Dictated by: Lenny Rodriguez M.D. on 09/19/2016 at 15:05 Approved by: Lenyn Rodriguez M.D. on 09/19/2016 at 15:08 Assessment & Plan 75 y/o F with history of COPD on 2L O2 at home PRN, hypertension, hyperlipidemia , coronary artery disease s/p SC and stenting X 1 vessel in 2008, and prior CVA in 2008 with no residual deficits, who was sented to the ED after she had a failed outpatient stress test prior to arrival. The patient had decreased O2 sats and experienced chest pain and dyspnea during the test. She was on the treadmill for less than 2 minutes before she needed to stop. # Acute chest pain, present on admission. Resolved - Ruled out for acute coronary syndrome with negative Trop - Patient failed outpatient cardiac stress test on day of admit prompting her visit to the ED. - D-Dimer was positive in ED , however Echo and vitals not indicative of acute PE, suspicion low - continue aspirin and atorvastatin # Acute respiratory failure likely 2/2 COPD exacerbation - She is on 2 L O2 at baseline at home - Continue supplemental oxygen. Goal SpO2 88% - 92%. - Continue with 40 mg prednisone daily x 5 days (started on admission) - No evidence of active infection. Sputum culture pending - Continue duo nebs 4 times a day while awake and albuterol nebs every 2 hours for shortness of breath. - CT ordered, pulmonology consult pending results # Elevated d-dimer, present remission active - supsicion for PE very low, this has been a chronic problem - Echo not supicious for PE - negative for DVTs - will monitor Chronic Stable Problems: # CVA 2008 # SC 2008 # Hypertension # Hyperlipidemia # Coronary artery disease - Status post stenting 1 in 2008 Dispo: likely 2-3 days pending pulmonary work as stated above VTE Prophylaxis: Other (Lovenox) VTE Mechanical Devices: Venous Foot Pump Resuscitation Status: CPR: Attempt Resuscitation Agusto You MD Sep 21, 2016 14:35
[2016-09-21] MEDS ORDERED: LOSA100T29 PO (16:39)
[2016-09-21] MEDS ORDERED: SYMINH INHALATION (16:39)
[2016-09-21] MEDS ORDERED: ROSU10TA24 PO (16:39)
[2016-09-21] MEDS ORDERED: LEVA15HF6 IH (16:39)
[2016-09-21] MEDS ORDERED: DULO20CA18 PO (16:39)
[2016-09-21] MEDS ORDERED: RANI150C4 PO (16:39)
[2016-09-21] MEDS ORDERED: CARB15DR74 BOTH_EYES (16:39)
[2016-09-21] MEDS ORDERED: LEVA1.2515 INHALATION (16:39)
[2016-09-21] MEDS ORDERED: IPRA0.2S51 IH (16:39)
[2016-09-21] MEDS ORDERED: METO-272 PO (16:39)
[2016-09-21] MEDS ORDERED: ALPRAZolam 0.5 mg Tablet PO ONE (22:30)
[2016-09-22] VITALS (10 sets, daily range): BP systolic 143–162; BP diastolic 63–81; PULSE 60–90; RESP 18–22; O2SAT 94–96
--- NOTE | 2016-09-22 02:47 | NUR ---
PT ACTIVITY Pt restless, unable to sleep during night. Pt has been given prn melatonin for sleep, pt states ineffective. Noc hospitalist paged, rec'd OT order for prn po xanax. Dose given, pt still has not been able to have restful sleep. Pt has been ambulating in hallways w/ SBA and portable oxygen tank. Continue to monitor. Call light in reach. Bed alarm on. Intentional rounding.
[2016-09-22 06:12] LABS: BASOPHILS % (AUTO) 0.3 % (0-3); EOSINOPHILS % (AUTO) 0.7 % (0-5); MONOCYTES % (AUTO) 13.3 % (4-12); Mean Corpuscular Hemoglobin 33.6 pg (27.0-35.0); Mean Corpuscular Volume 105.2 fL (81-100); NEUTROPHILS % (AUTO) 67.8 % (40-74); Platelet Count 229 bil/L (150-400)
[2016-09-22] MEDS: Albuterol-Ipratropium 3 mL Inhalation Solution NEB SCH ×3 (07:30→15:49)
[2016-09-22] MEDS: predniSONE 20 mg Tablet PO SCH (09:18)
[2016-09-22] MEDS: guaiFENesin 20 mg/mL 10 mL Syrup PO PRN (16:04)
--- NOTE | 2016-09-22 16:14 | PCM.PNMED ---
Subjective Date of Service Sep 22, 2016 Subjective Patient seen and examined. She complains of shortness of breath still especially when lying down. Exam Vital Signs Vital Sign - Last Date Time Temp Pulse Resp B/P Pulse Ox O2 Delivery O2 Flow Rate FiO2 09/22/16 15:45 72 22 95 Nasal Cannula 2.00 09/22/16 14:59 36.4 160/76 Intake and Output 09/21/16 09/21/16 09/22/16 Cumulative From/Thru 15:00 23:00 07:00 09/19/16 14:44 - 09/22/16 06:30 Intake Total 1016 ml 800 ml 4535 ml Output Total 1900 ml 800 ml 6655 ml Balance -884 ml 0 ml -2120 ml Intake Oral 940 ml 800 ml 4128 ml IV Total 76 ml 407 ml Output Urine Total 1900 ml 800 ml 6655 ml # Bowel Movements 1 2 8 Exam General: Alert, Cooperative, No Acute Distress, gets short of breath while speaking Head: Normal Eyes: Scleral Anicteric Nose: Mucous Membr Moist/[place] Mouth: Mucous Membr Moist/[place] Neck: Supple Chest & Lungs: Chest Wall Normal, Clear to auscultation & percussion. No wheezing or crackles heard. Cardiovascular: Regular Rate/Rhythm Pulses: NL carotid, radial, femoral, DP, PT Abdomen: Non-tender, Non-distended, Normoactive bowel tones, Soft Extremities: No cyanosis/clubbing/edma bilat Neurological: Grossly Neurologically Intact, Normal Speech Additional Information: Psych: Calm, appropriate Lab and Diagnostics Result Diagram: 09/22/16 0531 09/22/16 0531 X-Rays, CTs and MRIs Date of Service: 09/19/16 0817 PROCEDURE: X-RAY CHEST, TWO VIEWS Surgical changes and devices: None. Lungs and pleura: No pleural effusions or pneumothorax. Scattered scarring/ atelectasis. There is linear left midlung opacity probably additional platelike atelectasis. Mediastinum: Cardiac silhouette and mediastinal contours are stable. Bones and chest wall: Mild anterior wedging of a midthoracic vertebral body, technically age-indeterminate. Soft tissues appear unremarkable. IMPRESSION: Bibasilar scarring/atelectasis. Dictated by: Padilla Wheeler M.D. on 09/19/2016 at 18:47 Approved by: Padilla Wheeler M.D. on 09/19/2016 at 18:49 Date of Service: 09/19/16 1526 PROCEDURE: X-RAY CHEST ONE VIEW, PORTABLE INDICATIONS: dyspnea Surgical changes and devices: None. Lungs and pleura: The aeration of the lungs is similar to the prior exam. The left diaphragm is not well seen, similar to the prior exam. There may be left basilar atelectasis. No definite pneumothorax is appreciated. The pulmonary vasculature may be slightly prominent. Mediastinum: Mediastinal contours appear normal. Heart size is enlarged. Bones and chest wall: No suspicious bony lesions. Overlying soft tissues appear unremarkable. IMPRESSION: 1. Cardiomegaly with mild vascular congestion. 2. Possible left basilar scarring/atelectasis. Superimposed pneumonia cannot be entirely excluded. Dictated by: Lenny Rodriguez M.D. on 09/19/2016 at 15:05 Approved by: Lenny Rodriguez M.D. on 09/19/2016 at 15:08 Assessment & Plan 75 y/o F with history of COPD on 2L O2 at home PRN, hypertension, hyperlipidemia , coronary artery disease s/p CA and stenting X 1 vessel in 2008, and prior CVA in 2008 with no residual deficits, who was sented to the ED after she had a failed outpatient stress test prior to arrival. The patient had decreased O2 sats and experienced chest pain and dyspnea during the test. She was on the treadmill for less than 2 minutes before she needed to stop. # Acute chest pain, present on admission - Negative trops, however patient has a h/CAD, and was not able to finish the stress test - D-Dimer was positive in ED , however Echo and vitals not indicative of acute PE, suspicion low - continue aspirin and atorvastatin - will get cardiology consult to weigh in # Acute respiratory failure likely 2/2 COPD exacerbation - She is on 2 L O2 at baseline at home - Continue supplemental oxygen. Goal SpO2 88% - 92%. - Continue with 40 mg prednisone daily x 5 days (started on admission) - No evidence of active infection. Sputum culture : normal kali - Continue duo nebs 4 times a day while awake and albuterol nebs every 2 hours for shortness of breath. - CT ordered - results: 6 mm left apical pulmonary nodule not visualized on prior studies, will need a follow up CT to see the nodule's evolution., Mild centrilobular emphysema and probable early fibrotic changes.. No other findings to explain dyspnea. # Elevated d-dimer, present remission active - supsicion for PE very low, this has been a chronic problem - Echo not supicious for PE - negative for DVTs - will monitor Chronic Stable Problems: # CVA 2008 # CA 2008 # Hypertension # Hyperlipidemia # Coronary artery disease - Status post stenting 1 in 2008 Dispo: likely 2-3 days pending cardiology's input and improvement in patient's condition. VTE Prophylaxis: Other (Lovenox) VTE Mechanical Devices: Venous Foot Pump Resuscitation Status: CPR: Attempt Resuscitation Time spent 45 mins Attending Statement Patient expected to stay > 48 hours in patient due to complexity of her disease. Agusto You MD Sep 22, 2016 16:14
--- NOTE | 2016-09-22 16:30 | NUR ---
SOB Patient continues to have shortness of breath, increasing with activity. Patient on 1-2 liter O2, sats 94-95%. Patient walking in hallway with portable O2.
[2016-09-22] MEDS ORDERED: ALPRAZolam 0.25 mg Tablet PO ONE (23:05)
[2016-09-23] VITALS (12 sets, daily range): BP systolic 122–174; BP diastolic 60–72; PULSE 57–113; RESP 18–20; O2SAT 88–98
[2016-09-23] MEDS: guaiFENesin 20 mg/mL 10 mL Syrup PO PRN ×4 (04:10→22:11)
[2016-09-23 05:52] LABS: BASOPHILS % (AUTO) 0.2 % (0-3); EOSINOPHILS % (AUTO) 0.6 % (0-5); MONOCYTES % (AUTO) 14.8 % (4-12); Mean Corpuscular Hemoglobin 33.4 pg (27.0-35.0); Mean Corpuscular Volume 104.4 fL (81-100); NEUTROPHILS % (AUTO) 67.9 % (40-74); Platelet Count 249 bil/L (150-400)
--- NOTE | 2016-09-23 06:17 | NUR ---
Pain/Bloating Pt reports 6/10 rib pain exacerbated by cough, instructed pt to splint with pillow during cough episodes, Robitussin given x1, effective. Pt also c/o bloating and burps quite frequently, Symethicone given. Pt ambulating in hallway, SOB with exertion but tolerates fairly well.
[2016-09-23] MEDS: Albuterol-Ipratropium 3 mL Inhalation Solution NEB SCH ×4 (07:18→20:46)
[2016-09-23] MEDS: predniSONE 20 mg Tablet PO SCH (08:29)
--- NOTE | 2016-09-23 09:45 | PCM.CHPCAR ---
Consult Subjective Date of service Sep 23, 2016 Date of admit Sep 19, 2016 at 18:34 Provider Requesting Consult Primary Care Physician Primary Care Physician: Greg Jackson MD Chief Complaint dyspnea, chest pain History of Present Illness 75 yo W h/o CAD admitted with chest pain and dyspnea. Patient is followed by me as outpatient for her coronary artery disease. I saw her about 2 weeks ago for atypical chest pain and ordered a nuclear stress test. She came in for the stress test but could not complete it as she was hypoxic and unable to lay flat. She was sent to emergency room and later admitted to the hospital for further care. On history today, patient states that her chest pain has been constant ongoing for the past few weeks. Her shortness of breath is off-and-on but it significantly debilitates her. Denies lightheadedness or syncope. Patient claims to have gained 25 pounds over the past month but review of records over the past 4 months a NexGen show stable weight. Since she has been in the hospital, she has not felt any better. She had an echocardiogram that showed normal LV function and grade 1 diastolic dysfunction. Her troponins have been unremarkable. PROBLEM LIST: # CAD s/p anterior MT treated with thrombolysis 2003 and rescue PCI of mid LAD with DIMA # COPD: quit smoking 1994 # HTN # HLD # Obese Review of Systems Review of Systems Per history of present illness and otherwise unremarkable PMH Past Medical History # CAD s/p anterior MT treated with thrombolysis 2003 and rescue PCI of mid LAD with DIMA # COPD: quit smoking 1994 # HTN # HLD # Obese Scheduled Budesonide/Formoterol 160-4.5 mcg Inh (Symbicort 160-4.5 mcg Inh) 120 Puff Inhaler 2 PUFF INHALATION BID (Reported) Duloxetine (Duloxetine) 20 Mg Capsule.dr 20 MG PO DAILY (Reported) Ipratropium [place] (Ipratropium [place] Inhalant Solution) 0.2 Mg/1 Ml Solution 0.02 MG IH QID (Reported) Levalbuterol (Levalbuterol) 1.25 Mg/3 Ml Vial.neb 1.25 MG INHALATION QID ( Reported) Losartan Potassium (Losartan Potassium) 100 Mg Tablet 100 MG PO HS (Reported) Metoprolol Succinate ER (Metoprolol Succinate ER) 50 Mg Tab.er.24h 50 MG PO HS ( Reported) Ranitidine (Ranitidine) 150 Mg Capsule 150 MG PO BID (Reported) Rosuvastatin Calcium (Rosuvastatin Calcium) 10 Mg Tablet 10 MG PO HS (Reported) Scheduled PRN Levalbuterol Tartrate (Levalbuterol Tartrate Hfa) 45 Mcg/Actuation Hfa.aer.ad 15 GM IH QID PRN PRN For Cough (Reported) Miscellaneous Medications Carboxymethylcellulose Sodium (Refresh Tears) 15 Ml Drops 1 DROP BOTH_EYES ( Reported) Current Inpatient Medications Current Medications Simethicone 80 mg QID PRN PO Last administered on 09/22/16 22:56; Admin Dose 80 MG; Start 09/22/16 at 11:05 Guaifenesin 200 mg Q6H PRN PO Last administered on 09/23/16 04:10; Admin Dose 200 MG; Start 09/22/16 at 16:00 Allergies: Coded Allergies: Penicillins (Verified Allergy, Severe, 09/19/16) codeine (Verified Allergy, Severe, 09/19/16) iodine (Verified Allergy, Severe, 09/19/16) ramipril (Verified Allergy, Severe, 09/19/16) Family History Family History All 3 children are healthy Social History Hx Alcohol Use: Yes (rare)Hx Substance Use: NoHx Tobacco Use: Yes (Quit in 2002) Smoking Status: Former Smoker (20 years 2 packs per day) Exam Vital Signs Vital Sign - Last Date Time Temp Pulse Resp B/P Pulse Ox O2 Delivery O2 Flow Rate FiO2 09/23/16 07:20 83 20 96 Nasal Cannula 2.00 09/23/16 06:02 36.7 149/71 Intake and Output 09/22/16 09/22/16 09/23/16 Cumulative From/Thru 14:59 22:59 06:59 09/19/16 14:44 - 09/23/16 06:30 Intake Total 925 ml 300 ml 5760 ml Output Total 3125 ml 1400 ml 05840 ml Balance -2200 ml -1100 ml -5420 ml Intake Oral 925 ml 300 ml 5353 ml IV Total 407 ml Output Urine Total 3125 ml 1400 ml 55775 ml # Bowel Movements 2 10 Objective General appearance: No apparent distress, well-nourished, pleasant, cooperative HEET: Normocephalic atraumatic, no scleral icterus, tongue midline, mucous membranes moist Neck: supple Cardiovascular: RRR, normal S1 and normal S2, 2/6 systolic murmur, no rubs/ gallops, PMI nondisplaced, no JVD, trace peripheral edema Respiratory: Good aeration, CTAB Abdomen: Soft, nontender, nondistended, + bowel sounds Neuro: Alert, no facial droop, tongue midline, no gross motor deficits Psych: appropriate affect Lab and Diagnostics Labs Labs 08/2016: total cholesterol 265, HDL 88, LDL 160, TG 83. Result Diagram: 09/23/1651209/23/16512 X-Rays, CTs and MRIs CT chest without contrast 09/21/2016: 6mm left apical pulmonary nodule, mild centrilobular emphysema Venous US 09/20/2016: negative for DVT in either extremity Echo 09/20/2016: Left ventricular systolic function is normal without focal wall motion abnormalities with the ejection fraction visually estimated to be 60-65%. There is mild concentric left ventricular hypertrophy and assessment of diastolic parameters indicates a relaxation abnormality of the left ventricle, consistent with normal filling pressures, likely significantly lower compared to the previous study. The right ventricle is normal size with probable borderline right ventricular hypertrophy. Right ventricular systolic function is at the lower limits of normal and appears slightly less dynamic compared to the previous study. Pulmonary artery pressures cannot be estimated because of the lack of a measurable TR jet velocity but the IVC suggests a low right atrial pressure of 3 mm Hg. Right atrial size is normal and the left atrium is moderately dilated, but both are unchanged compared to the previous study. There is no significant valvular heart disease. The aortic arch is mildly enlarged but is unchanged compared to the previous study. There is an anterior echo-free space consistent with a fat pad. Assessment & Plan Assessment 75 yo W h/o CAD here for dyspnea and chest pain evaluation. # Chest pain: Patient self prescribed. Chest pain appears to be noncardiac in etiology. I suspect her chest discomfort is more musculoskeletal or GERD in etiology. Her ECGs also unremarkable and her troponins are negative. Her echo is also reassuring as there are no wall motion abnormalities. I educated the patient about her condition and answer questions. - Continue to monitor CAD s/p old anterior MT treated with lytics and rescue PCI of the mid LAD with DIMA in 2003. Patient has done well clinically since his stent placement. Plan: - Continue aspirin 81mg daily - Switch from atorvastatin 40mg qhs to rosuvastatin 10mg qhs - Restart losartan 100mg qhs - Restart metoprolol XL 50mg daily # Dyspnea: etiology unclear. Differential is broad and includes pulmonary embolism, abdominal bloating, and/or anxiety. I do not think there is a component of heart failure or coronary disease causing her dyspnea. Her CT chest noncontrast has not revealed any acute cardiopulmonary etiology. Recommendations as below: - Consider evaluation for pulmonary embolism with a VQ scan or CT PA angiogram with pre-medications for contrast allergy - Treat abdominal bloating with stool softners and laxatives - If PE study is negative and stool softners don't help, consider pulmonary consult #: HTN: as above # HLD: as above VTE Prophylaxis: Other (Lovenox) VTE Mechanical Devices: Venous Foot Pump Resuscitation Status: CPR: Attempt Resuscitation Fredi Bryan MD Sep 23, 2016 09:45
[2016-09-23] MEDS: MeTOProlol XL 50 mg ER24 Tablet PO SCH (10:43)
--- NOTE | 2016-09-23 12:41 | PCM.PNMED ---
Subjective Date of Service Sep 23, 2016 Subjective Patient seen and examined today. Still short of breath. Exam Vital Signs Vital Sign - Last Date Time Temp Pulse Resp B/P Pulse Ox O2 Delivery O2 Flow Rate FiO2 09/23/16 12:09 79 20 95 Nasal Cannula 2.00 09/23/16 10:01 36.8 141/64 Intake and Output 09/22/16 09/22/16 09/23/16 Cumulative From/Thru 15:00 23:00 07:00 09/19/16 14:44 - 09/23/16 06:30 Intake Total 925 ml 300 ml 5760 ml Output Total 3125 ml 1400 ml 45243 ml Balance -2200 ml -1100 ml -5420 ml Intake Oral 925 ml 300 ml 5353 ml IV Total 407 ml Output Urine Total 3125 ml 1400 ml 71282 ml # Bowel Movements 2 10 Exam General: Alert, Cooperative, No Acute Distress, gets short of breath while speaking Head: Normal Eyes: Scleral Anicteric Nose: Mucous Membr Moist/[place] Mouth: Mucous Membr Moist/[place] Neck: Supple Chest & Lungs: Chest Wall Normal, Clear to auscultation & percussion. No wheezing or crackles heard. Cardiovascular: Regular Rate/Rhythm Pulses: NL carotid, radial, femoral, DP, PT Abdomen: Non-tender, Non-distended, Normoactive bowel tones, Soft Extremities: No cyanosis/clubbing/edma bilat Neurological: Grossly Neurologically Intact, Normal Speech Additional Information: Psych: Calm, appropriate Lab and Diagnostics Result Diagram: 09/23/16 0513 09/23/16 0513 X-Rays, CTs and MRIs Date of Service: 09/19/16 2537 PROCEDURE: X-RAY CHEST, TWO VIEWS Surgical changes and devices: None. Lungs and pleura: No pleural effusions or pneumothorax. Scattered scarring/ atelectasis. There is linear left midlung opacity probably additional platelike atelectasis. Mediastinum: Cardiac silhouette and mediastinal contours are stable. Bones and chest wall: Mild anterior wedging of a midthoracic vertebral body, technically age-indeterminate. Soft tissues appear unremarkable. IMPRESSION: Bibasilar scarring/atelectasis. Dictated by: Padilla Wheeler M.D. on 09/19/2016 at 18:47 Approved by: Padilla Wheeler M.D. on 09/19/2016 at 18:49 Date of Service: 09/19/16 1526 PROCEDURE: X-RAY CHEST ONE VIEW, PORTABLE INDICATIONS: dyspnea Surgical changes and devices: None. Lungs and pleura: The aeration of the lungs is similar to the prior exam. The left diaphragm is not well seen, similar to the prior exam. There may be left basilar atelectasis. No definite pneumothorax is appreciated. The pulmonary vasculature may be slightly prominent. Mediastinum: Mediastinal contours appear normal. Heart size is enlarged. Bones and chest wall: No suspicious bony lesions. Overlying soft tissues appear unremarkable. IMPRESSION: 1. Cardiomegaly with mild vascular congestion. 2. Possible left basilar scarring/atelectasis. Superimposed pneumonia cannot be entirely excluded. Dictated by: Lenny Rodriguez M.D. on 09/19/2016 at 15:05 Approved by: Lenny Rodriguez M.D. on 09/19/2016 at 15:08 Assessment & Plan 75 y/o F with history of COPD on 2L O2 at home PRN, hypertension, hyperlipidemia , coronary artery disease s/p [place] and stenting X 1 vessel in 2008, and prior CVA in 2008 with no residual deficits, who was sented to the ED after she had a failed outpatient stress test prior to arrival. The patient had decreased O2 sats and experienced chest pain and dyspnea during the test. She was on the treadmill for less than 2 minutes before she needed to stop. # Acute chest pain, present on admission - Negative trops, however patient has a h/CAD, and was not able to finish the stress test - D-Dimer was positive in ED , however Echo and vitals not indicative of acute PE, suspicion low - continue aspirin and atorvastatin - Dr Bryan (cardiology) consulted, appreciate recs # Acute respiratory failure likely 2/2 COPD exacerbation - She is on 2 L O2 at baseline at home - Continue supplemental oxygen. Goal SpO2 88% - 92%. - Continue with 40 mg prednisone daily x 5 days (started on admission) - No evidence of active infection. Sputum culture : normal kali - Continue duo nebs 4 times a day while awake and albuterol nebs every 2 hours for shortness of breath. - CT ordered - results: 6 mm left apical pulmonary nodule not visualized on prior studies, will need a follow up CT to see the nodule's evolution., Mild centrilobular emphysema and probable early fibrotic changes.. No other findings to explain dyspnea. # Elevated d-dimer, present remission active - supsicion for PE very low, this has been a chronic problem - Echo not supicious for PE - negative for DVTs - will get V/Q scan today, if negative, will get pulmonology consult # Anxiety - it seems like patient gets anxious easily - either this is related to her getting short of breath, or vice versa - will do prn anti anxiety meds for now, if work up rules out any other causes, and her anxiety doesnt improve, will start her on SSRIs. # Hypertension - adjusted HTN meds - losartan 100 mg QHs - Metoprolol XL 50 QD Chronic Stable Problems: # CVA 2008 # [place] 2008 # Hyperlipidemia # Coronary artery disease - Status post stenting 1 in 2008 Dispo: likely 2-3 days pending V/Q scan results. VTE Prophylaxis: Other (Lovenox) VTE Mechanical Devices: Venous Foot Pump Resuscitation Status: CPR: Attempt Resuscitation Time spent 45 mins Agusot You MD Sep 23, 2016 12:41
--- NOTE | 2016-09-23 13:33 | NUR ---
Cough/Pain Patient continues to have an intermittent cough. Today, cough has become slightly productive with red streaked clear to white phlegm. Patient also continues to reports rib pain which is much worse when coughing. Tylenol moderately effective.
--- NOTE | 2016-09-23 16:39 | DRSVH ---
PROCEDURE: NM LUNG VQ RADIOPHARMACEUTICAL: 25.6 mCi Tc-99m DTPA aerosol by inhalation and 5.7 mCi Tc-99m MAA intravenously . INDICATIONS: Dyspnea TECHNIQUE: Ventilation images were obtained first with Tc-99m DTPA aerosol. Subsequently, perfusion images were acquired after intravenous injection of Tc-99m MAA. Anterior, posterior, ROBLES, JANETTE, RPO, LPO, left and right lateral views were obtained. COMPARISON: None. FINDINGS: Very low probability of acute pulmonary embolus. IMPRESSION: Very low probability of acute pulmonary embolus. Dictated by: Ralph Butterfield M.D. on 09/23/2016 at 16:36 Approved by: Ralph Butterfield M.D. on 09/23/2016 at 16:37
[2016-09-24] VITALS (9 sets, daily range): BP systolic 130–148; BP diastolic 68–77; PULSE 61–84; RESP 18–22; O2SAT 94–98
[2016-09-24] MEDS: Heparin 5,000 Unit/mL Inj SUBQ SCH ×3 (00:58→16:13)
[2016-09-24 05:49] LABS: BASOPHILS % (AUTO) 0.4 % (0-3); EOSINOPHILS % (AUTO) 0.8 % (0-5); MONOCYTES % (AUTO) 13.5 % (4-12); Mean Corpuscular Hemoglobin 34.8 pg (27.0-35.0); Mean Corpuscular Volume 104.9 fL (81-100); Platelet Count 250 bil/L (150-400)
--- NOTE | 2016-09-24 06:05 | NUR ---
Stable overnight Pt c/o pain 4/10 at abdomen with cough, Tylenol and Guaifenesin given at late pm, warm pack on, pain improved to 2/10,tolerable. Intermittent cough, scan clear sputum. SOB at rest and with activities, no change since admission per pt, SPO2 briefly down to 87% on O2 2l when sleeping, mostly SPO2 around 92%. Decreased lung sounds bilaterally,coarse at right lung, no crackles or wheezes noted, NEB by RT, no additional NEB needed. Denies chest pain or pressure, VSS, afebrile. Sleeping intermittently. Tele: SR 60S PVCs and PACs. Trace edema at feet. Care ongoing.
[2016-09-24] MEDS: Albuterol-Ipratropium 3 mL Inhalation Solution NEB SCH ×4 (08:19→20:33)
[2016-09-24] MEDS: MeTOProlol XL 50 mg ER24 Tablet PO SCH (08:34)
[2016-09-24] MEDS: guaiFENesin 20 mg/mL 10 mL Syrup PO PRN ×2 (08:34→20:53)
[2016-09-24] MEDS: predniSONE 20 mg Tablet PO SCH (08:34)
--- NOTE | 2016-09-24 09:14 | PCM.PNMED ---
Subjective Date of Service Sep 24, 2016 Subjective Patient seen and examined today. Condition unchanged. Vitals stable. Exam Vital Signs Vital Sign - Last Date Time Temp Pulse Resp B/P Pulse Ox O2 Delivery O2 Flow Rate FiO2 09/24/16 08:50 72 09/24/16 08:20 22 95 Nasal Cannula 2.00 09/24/16 05:25 36.8 148/77 Intake and Output 09/23/16 09/23/16 09/24/16 Cumulative From/Thru 15:00 23:00 07:00 09/19/16 14:44 - 09/24/16 05:49 Intake Total 400 ml 350 ml 6510 ml Output Total 725 ml 500 ml 69370 ml Balance -325 ml -150 ml -5895 ml Intake Oral 400 ml 350 ml 6103 ml IV Total 407 ml Output Urine Total 725 ml 500 ml 59629 ml # Bowel Movements 1 11 Exam General: Alert, Cooperative, No Acute Distress, gets short of breath while speaking Head: Normal Eyes: Scleral Anicteric Mouth: Mucous Membr Moist/[place] Neck: Supple Chest & Lungs: Chest Wall Normal, Clear to auscultation & percussion. No wheezing or crackles heard. Cardiovascular: Regular Rate/Rhythm Abdomen: Non-tender, Non-distended, Normoactive bowel tones, Soft Extremities: No cyanosis/clubbing/edma bilat Lab and Diagnostics Result Diagram: 09/24/1651109/24/16 0512 X-Rays, CTs and MRIs Date of Service: 09/19/16 1717 PROCEDURE: X-RAY CHEST, TWO VIEWS Surgical changes and devices: None. Lungs and pleura: No pleural effusions or pneumothorax. Scattered scarring/ atelectasis. There is linear left midlung opacity probably additional platelike atelectasis. Mediastinum: Cardiac silhouette and mediastinal contours are stable. Bones and chest wall: Mild anterior wedging of a midthoracic vertebral body, technically age-indeterminate. Soft tissues appear unremarkable. IMPRESSION: Bibasilar scarring/atelectasis. Dictated by: Padilla Wheeler M.D. on 09/19/2016 at 18:47 Approved by: Paidlla Wheeler M.D. on 09/19/2016 at 18:49 Date of Service: 09/19/16 1526 PROCEDURE: X-RAY CHEST ONE VIEW, PORTABLE INDICATIONS: dyspnea Surgical changes and devices: None. Lungs and pleura: The aeration of the lungs is similar to the prior exam. The left diaphragm is not well seen, similar to the prior exam. There may be left basilar atelectasis. No definite pneumothorax is appreciated. The pulmonary vasculature may be slightly prominent. Mediastinum: Mediastinal contours appear normal. Heart size is enlarged. Bones and chest wall: No suspicious bony lesions. Overlying soft tissues appear unremarkable. IMPRESSION: 1. Cardiomegaly with mild vascular congestion. 2. Possible left basilar scarring/atelectasis. Superimposed pneumonia cannot be entirely excluded. Dictated by: Lenny Rodriguez M.D. on 09/19/2016 at 15:05 Approved by: Lenny Rodriguez M.D. on 09/19/2016 at 15:08 Additional Diagnostics VQ scan FINDINGS: Very low probability of acute pulmonary embolus. IMPRESSION: Very low probability of acute pulmonary embolus. Assessment & Plan 75 y/o F with history of COPD on 2L O2 at home PRN, hypertension, hyperlipidemia , coronary artery disease s/p [place] and stenting X 1 vessel in 2008, and prior CVA in 2008 with no residual deficits, who was sented to the ED after she had a failed outpatient stress test prior to arrival. The patient had decreased O2 sats and experienced chest pain and dyspnea during the test. She was on the treadmill for less than 2 minutes before she needed to stop. # Acute chest pain, present on admission - Negative trops, however patient has a h/CAD, and was not able to finish the stress test - D-Dimer was positive in ED , however Echo and vitals not indicative of acute PE, suspicion low - continue aspirin and atorvastatin - Dr Bryan (cardiology) consulted, appreciate recs # Acute respiratory failure likely 2/2 COPD exacerbation - She is on 2 L O2 at baseline at home - Continue supplemental oxygen. Goal SpO2 88% - 92%. - Continue with 40 mg prednisone daily x 5 days (started on admission) - No evidence of active infection. Sputum culture : normal kali - Continue duo nebs 4 times a day while awake and albuterol nebs every 2 hours for shortness of breath. - CT ordered - results: 6 mm left apical pulmonary nodule not visualized on prior studies, will need a follow up CT to see the nodule's evolution., Mild centrilobular emphysema and probable early fibrotic changes.. No other findings to explain dyspnea. - V/Q scan : low probability for PE # Elevated d-dimer, present remission active - supsicion for PE very low, this has been a chronic problem - Echo not supicious for PE - negative for DVTs - will get V/Q scan : low probability for PE - pulmonology service consulted, appreciate recs # Anxiety - it seems like patient gets anxious easily - either this is related to her getting short of breath, or vice versa - will do prn anti anxiety meds for now, if work up rules out any other causes, and her anxiety doesnt improve, will start her on SSRIs. # Hypertension - adjusted HTN meds - losartan 100 mg QHs - Metoprolol XL 50 QD Chronic Stable Problems: # CVA 2008 # [place] 2008 # Hyperlipidemia # Coronary artery disease - Status post stenting 1 in 2008 Dispo: likely 2-3 days pending V/Q scan results. VTE Prophylaxis: Other (Lovenox) VTE Mechanical Devices: Intermittant Pneumatic CD Resuscitation Status: CPR: Attempt Resuscitation Time spent 45 mins Agusto You MD Sep 24, 2016 09:14
--- NOTE | 2016-09-24 14:54 | CONS ---
[address] [address] CONSULTATION REPORT PATIENT: SASHA JIN I : 1940 MR#: [id number] ADMIT: 09/19/2016 JOB ID: [id number] DATE OF SERVICE: 09/24/2016 PULMONARY CRITICAL CARE CONSULTATION NOTE: REQUESTING CLINICIAN: Dr. You, [facility]. DATE OF SERVICE: HISTORY OF PRESENT ILLNESS: The patient is a very pleasant 75-year-old white female, former smoker, who was admitted following development of severe dyspnea and chest pain during an attempted treadmill exercise tolerance test. She was admitted on September 19. Since admission, she has been seen by Cardiology and undergone a variety of studies including chest CT scan and ventilation perfusion scan to exclude pulmonary embolism. Pulmonary consultation is requested today to assist in her evaluation and management. She is a former smoker with 25 pack year history, quitting 30 years ago. 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 She has previously been diagnosed with COPD and prescribed inhaled bronchodilators including levalbuterol, tiotropium and short-acting agents including albuterol and ipratropium. She has several exacerbations per year. She is reluctant to go to the physician and typically attempts to ride out her symptoms at home. Most recently, she had experienced increasing dyspnea, cough and increased amounts of sputum for approximately 10 days. She attempted a previously scheduled treadmill exercise tolerance test that only lasted two minutes during stage 1 when she had to stop the study due to dyspnea and chest pain. She was admitted to the hospital and myocardial infarction was excluded with serial enzymes and EKGs. Transthoracic echocardiogram showed minimal evidence for diastolic heart disease and normal left ventricular systolic function. Chest CT scan confirmed the presence of central lobular emphysema, but could not reveal any other cause for her degree of dyspnea. She underwent a nuclear medicine ventilation perfusion scan which was read as low probability for venous thromboembolism. She describes her chest pain as constant in nature with a band like character around her lower chest. It is symmetric and slightly more anterior than posterior. It is exacerbated by large meals or drinking liquids and made worse when she lays down at night and rolls from one side to the other. It contributes to her sleep fragmentation. This has been particularly problematic for the last six months although she feels that she first began to experience the symptoms approximately two years ago. She is at her lifetime maximal body weight. Five years ago she moved to an assisted living facility that provides all meals and has gained weight most of the years that she has lived there. For the last several months prior to admission, she had noticed increasing lower extremity edema. She also complained of burning dysesthesias of both distal lower extremities. She was treated with diuretics and something for her neuropathy, ? gabapentin ?. Her cough currently is productive of several tablespoons of light hubbard colored mucus each day. There has been no gross purulence or hemoptysis. She has 2-3 pillow orthopnea but denies PND. She has been prescribed supplemental home oxygen for 2-3 years but does not use it during the day as she is so active and does not like a portable system. She also has some trouble using it even at night when she is back in her apartment where she keeps a concentrator. It seems as though she finds the nasal cannula uncomfortable and feels that it contributes to her sleep disturbance. PAST MEDICAL HISTORY: 1. Morbid obesity. 2. Moderately severe COPD. 2.1 FEV 19 November 2015, 56% predicted, diffusing capacity, 54% of predicted. 3. Dyslipidemia. 4. Neuropathy. 5. Hypertension. OUTPATIENT MEDICATIONS: Include: 1. Symbicort 2 puffs b.i.d. 2. Ipratropium. 3. Xopenex unit dose by nebulizer b.i.d. and p.r.n. 4. Metoprolol ER 50 mg p.o. daily. 5. Ranitidine 150 mg p.o. b.i.d. 6. Rosuvastatin 10 mg p.o. at h.s. 7. Duloxetine 20 mg p.o. daily. DRUG ALLERGIES: RAMIPRIL, PENICILLIN and CODEINE. She also gives a history possibly of reaction to IV CONTRAST DYE. SOCIAL HISTORY: She is and retired. She is seen today with her adult son in the room. Appears appropriately concerned. FAMILY HISTORY: Noncontributory. REVIEW OF SYSTEMS: She has still a progressive dyspnea, orthopnea with recently increased cough, dyspnea, wheezing and sputum production. For two months now, she has had night sweats which at times are drenching. She denies any change in voice, heat or cold tolerance, lymphadenopathy. She has developed an intensely erythematous rash over her lower legs with thickening of the skin in this area, and which she describes as pruritic. She denies any prior history of heart disease, liver disease or renal disease. She has no history of prior malignancy. PHYSICAL EXAMINATION: This is an alert, cooperative, slightly apprehensive, obese woman who speaks in full sentences without accessory muscle use. Her blood pressure is 140/70, her heart rate is 80 and regular. Respirations are 18. O2 saturation at rest on room air is 93%. She is and has been afebrile since admission. HEENT examination: Head is normocephalic. Gaze is conjugate. Pupils are equal at 4 mm. Conjunctivae are mildly injected bilaterally. The sclerae are anicteric. The oropharynx shows slightly dry mucosa without ulceration or exudate. The trachea is midline. Thyroid is not palpable. Neck veins are not seen. There is no cervical or supraclavicular lymphadenopathy. The diaphragms are slightly elevated to percussion with what seems to be normal excursion on auscultation. She has slightly decreased air movement in the apices with markedly decreased breath sounds at both bases. There are scattered crackles at both bases but no wheezing is heard. Cardiac examination shows a distant regular rhythm with soft S1 and S2. No murmur, gallop or rub is present. Pulses are trace at both radial arteries and imperceptible at both dorsalis pedis. Lymphatic negative axillary, supraclavicular or cervical lymphadenopathy. She has a solitary submandibular node on the left. Skin: She has lichenification with multiple hyperkeratotic papules over the lower two thirds of both legs. There is no open ulceration. Neurologic: She moves all four extremities. She appears to have normal strength. She has diminished sensation to light touch and pinprick in the lower extremities. She has no dysmetria or abnormality of rapid alternating movements. DATABASE: Is per the electronic medical record. Chest CT scan and nuclear medicine ventilation-perfusion scan described above. In addition, there is an abdominal pelvic CT scan from 2016 with enteric contrast that demonstrates diffuse intra-abdominal lipomatosis. Her CBC shows a hemoglobin of 13, hematocrit of 39, WBC of 10.6, and 250,000 platelets. Chemistry shows sodium 143, potassium 4.2, chloride of 103, total CO2 of 26. BUN of 19, creatinine 0.6. Random glucose is 118. Total calcium 9.4. An echocardiogram performed September 20, 2016 showed normal left ventricular systolic function with mild concentric left ventricular hypertrophy and a relaxation abnormality of the left ventricle. IMPRESSION: Her dyspnea is multifactorial. Both her moderately severe chronic lung disease which appears to be acutely exacerbated contributes along with her obesity and deconditioning. In addition, I am concerned the dramatic degree of intra-abdominal lipomatosis seen on the study from last year contributes both to the chronic abdominal pain she is experiencing as well as her dyspnea. RECOMMEND: 1. Repeat abdominal pelvic CT with enteric contrast. 2. Resume outpatient long-acting beta agonist anticholinergic and inhaled steroids. 3. Taper oral steroids. 4. Aggressive attempt at weight loss. 5. Consider referral to General Surgery for evaluation of her lipomatosis and whether she might be a candidate for debulking surgery. Thank for requesting pulmonary critical care consultation on this very pleasant woman. Unfortunately, the major contributor other than her advanced chronic lung disease appears to be substantial abdominal lipomatosis which is an unusual condition for which no clearly established treatment exists. Isolated reports of debulking surgery have been published. Given her advanced age and significant chronic lung disease, she would be a less than ideal candidate for any such major surgery. However, her quality of life is extremely poor at present and this possibility should be at least discussed with her and considered.
--- NOTE | 2016-09-24 15:41 | NUR ---
Social Work: Multidisciplinary Rounds / Readiness for d/c Data: Pt is on day 5 of hospitalization. EMR reviewed. Pt discussed in rounds. states pt likely to d/c today pending pulm. Pt is from [facility] and has home O2 through [place]. Guerline will tx pt home at d/c. CLIENT CARE CONSULTANT will continue to follow if needs arise. Assessment: Pt who is independent at baseline. Plan: Pt will d/c back to [facility] via POV with Guerline [phone]. CLIENT CARE CONSULTANT will continue to follow if needs arise. AMY Aguilera
--- NOTE | 2016-09-24 16:35 | ABG ---
DateTimeAnalyzed 16:27:00 -_ pH ____7.428 - pCO2 ___40.3__ -mmHg pO2 195 -mmHg HCO3- ___26.2__ -mmol/L ABE ____2.2__ -mmol/L tHb ___14.4__ -g/dL O2Hb ___96.4__ -% COHb ____2.2__ -% MetHb ____0.5__ -% sO2 ___99.1__ -% FIO2 ___28.0__ -% Drawn By lab - Date/Time Notified____ 16:35:00 -_ Liter_Flow ____2.0__ -L/min Oxygen Device 1 nasal cannula - Notified By lw - Notified Whom ___Dr. Noyola - B 758 -mmHg tO2 ___19.9__ -Vol% Tuan test N/A -
--- NOTE | 2016-09-24 17:07 | DRSVH ---
PROCEDURE: CT ABDOMEN AND PELVIS WITHOUT CONTRAST ([id number]) INDICATIONS: Diffuse intra abdominal lipomatosis TECHNIQUE: After the administration of oral contrast, 5 mm thick sections acquired from the diaphragms to the sy mphysis. 5 mm coronal and sagittal reformats were performed. For radiation dose reduction, the foll owing was used: automated exposure control, adjustment of mA and/or kV according to patient size. COMPARISON: [facility], CT, CT CHEST WO CON, 09/21/2016, 12:31. FINDINGS: Image quality: Excellent. ABDOMEN: Lung bases: Lung bases are clear. Heart size is normal. Solid organs: Liver and spleen are normal in size. Gallbladder is mildly contracted. Pancreas is n ormal in size. No adrenal nodules. The right kidney demonstrates normal size. No hydronephrosis or n ephrolithiasis. A low-density cystic lesion is present at the upper pole of the right kidney. There i s a focal region of cortical scar adjacent to this cyst suggesting prior infarct or infection. An exo phytic cystic lesion is present off the lower pole the right kidney as well. There is trace perinephr ic fat stranding unchanged when compared with the study dated 06/08/15. A low-density partially exophy tic cystic lesion is present in the midpole the left kidney. No hydronephrosis or nephrolithiasis. Peritoneum and bowel: Bowel loops demonstrate normal wall thickness and caliber. The appendix is no t visualized; however there is no discrete right lower quadrant fluid or fat stranding to suggest acu te appendicitis. There are scattered sigmoid diverticula. No evidence for diverticulitis. No free flu id or air. When compared with the study dated 06/08/15, the amount of intraperitoneal fat appears increased in ex tent. For example, the distance between the anterior aspect of the left hepatic lobe and the anterior abdominal wall previously measured 4.3 cm and now measures 5.7 cm. Nodes and vessels: No retroperitoneal or mesenteric adenopathy by size criteria. Aorta and inferior vena cava are normal in size. There are scattered atheromatous calcifications throughout the aorta and iliac arteries bilaterally. Miscellaneous: No ventral hernias. PELVIS: Genitourinary: Bladder wall thickness is normal. Miscellaneous: No inguinal hernias or adenopathy. Bones: No suspicious bony lesions. No vertebral body compression fractures. IMPRESSION: 1. Findings consistent with overall increased intraperitoneal fat when compared with the study dated 06/08/15, consistent with the patient's diagnosis of intra-abdominal lipomatosis. 2. No acute intra-abdominal findings. The appendix is not visualized; however there are no ancillary findings to suggest acute appendicitis. 3. Diverticulosis. No acute diverticulitis. Dictated by: Kim Reyes M.D. on 09/24/2016 at 16:50 Approved by: Kim Reyes M.D. on 09/24/2016 at 17:05
--- NOTE | 2016-09-24 18:43 | NUR ---
Pain Patient reporting a decrease of pain today. Tylenol given one time. Patient continues to have a distended abdomen and "a lot of gas".
[2016-09-24] MEDS ORDERED: LEVALBUTEROL 45 MCG INHALATION PRN (18:50)
[2016-09-24] MEDS ORDERED: Albuterol 2.5 mg/3 mL Inhalation Solution NEB PRN (19:10)
[2016-09-24] MEDS ORDERED: Fluticasone-Salmeterol 500-50 Inhaler INHALATION SCH (20:30)
[2016-09-24] MEDS: Fluticasone-Salmeterol 500-50 Inhaler INHALATION SCH (20:50)
[2016-09-25] MEDS: Heparin 5,000 Unit/mL Inj SUBQ SCH ×2 (00:31→09:09)
[2016-09-25 05:14] VITALS: BP 133/61; PULSE 78; RESP 18; O2SAT 96
[2016-09-25 05:42] LABS: BASOPHILS % (AUTO) 0.2 % (0-3); EOSINOPHILS % (AUTO) 0.7 % (0-5); Mean Corpuscular Volume 104.2 fL (81-100); NEUTROPHILS % (AUTO) 69.3 % (40-74); Platelet Count 246 bil/L (150-400)
[2016-09-25] MEDS: Albuterol-Ipratropium 3 mL Inhalation Solution NEB SCH ×2 (07:21→11:21)
[2016-09-25 07:22] VITALS: PULSE 68; RESP 24; O2SAT 98
[2016-09-25] MEDS ORDERED: DULoxetine 20 mg DR Capsule PO SCH (08:30)
[2016-09-25] MEDS: MeTOProlol XL 50 mg ER24 Tablet PO SCH (09:09)
[2016-09-25] MEDS: predniSONE 20 mg Tablet PO SCH (09:09)
[2016-09-25] MEDS: Fluticasone-Salmeterol 500-50 Inhaler INHALATION SCH (09:10)
--- NOTE | 2016-09-25 10:26 | NUR ---
Social Work: Readiness for d/c / Multidisciplinary Rounds Data: Pt is on day 6 of hospitalization. EMR reviewed, pt discussed in rounds. MD states pt likely ready for d/c today. No d/c planning needs at this time. MULTIMEDIA ASSISTANT will continue to follow if needs arise. Assessment: Pt who is independent at baseline. Plan: Pt will d/c home via POV with [facility] [phone], likely today per , to [facility] with home O2 through [place]. MULTIMEDIA ASSISTANT will continue to follow. AMY Aguilera
--- NOTE | 2016-09-25 10:30 | PCM.PNMED ---
Subjective Date of Service Sep 25, 2016 Subjective Patient says she feels the same. Understands that this is related to her putting on weight. Vitals stable. Exam Vital Signs Vital Sign - Last Date Time Temp Pulse Resp B/P Pulse Ox O2 Delivery O2 Flow Rate FiO2 09/25/16 09:05 Supplement Oxygen 09/25/16 07:22 68 24 98 2.00 09/25/16 05:14 36.4 133/61 Intake and Output 09/24/16 09/24/16 09/25/16 Cumulative From/Thru 15:00 23:00 07:00 09/19/16 14:44 - 09/25/16 05:59 Intake Total 700 ml 400 ml 7610 ml Output Total 1250 ml 1800 ml 94704 ml Balance -550 ml -1400 ml -7845 ml Intake Oral 700 ml 400 ml 7203 ml IV Total 407 ml Output Urine Total 1250 ml 1800 ml 72750 ml # Bowel Movements 3 14 Lab and Diagnostics Result Diagram: 09/25/16 0520 09/25/16 0520 X-Rays, CTs and MRIs Date of Service: 09/19/16 1717 PROCEDURE: X-RAY CHEST, TWO VIEWS Surgical changes and devices: None. Lungs and pleura: No pleural effusions or pneumothorax. Scattered scarring/ atelectasis. There is linear left midlung opacity probably additional platelike atelectasis. Mediastinum: Cardiac silhouette and mediastinal contours are stable. Bones and chest wall: Mild anterior wedging of a midthoracic vertebral body, technically age-indeterminate. Soft tissues appear unremarkable. IMPRESSION: Bibasilar scarring/atelectasis. Dictated by: Padilla Wheeler M.D. on 09/19/2016 at 18:47 Approved by: Padilla Wheeler M.D. on 09/19/2016 at 18:49 Date of Service: 09/19/16 1526 PROCEDURE: X-RAY CHEST ONE VIEW, PORTABLE INDICATIONS: dyspnea Surgical changes and devices: None. Lungs and pleura: The aeration of the lungs is similar to the prior exam. The left diaphragm is not well seen, similar to the prior exam. There may be left basilar atelectasis. No definite pneumothorax is appreciated. The pulmonary vasculature may be slightly prominent. Mediastinum: Mediastinal contours appear normal. Heart size is enlarged. Bones and chest wall: No suspicious bony lesions. Overlying soft tissues appear unremarkable. IMPRESSION: 1. Cardiomegaly with mild vascular congestion. 2. Possible left basilar scarring/atelectasis. Superimposed pneumonia cannot be entirely excluded. Dictated by: Lenny Rodriguez M.D. on 09/19/2016 at 15:05 Approved by: Lenny Rodriguez M.D. on 09/19/2016 at 15:08 Additional Diagnostics VQ scan FINDINGS: Very low probability of acute pulmonary embolus. IMPRESSION: Very low probability of acute pulmonary embolus. CT abd/Pelvis IMPRESSION: 1. Findings consistent with overall increased intraperitoneal fat when compared with the study dated 06/08/15, consistent with the patient's diagnosis of intra- abdominal lipomatosis. 2. No acute intra-abdominal findings. The appendix is not visualized; however there are no ancillary findings to suggest acute appendicitis. 3. Diverticulosis. No acute diverticulitis. Assessment & Plan 75 y/o F with history of COPD on 2L O2 at home PRN, hypertension, hyperlipidemia , coronary artery disease s/p AR and stenting X 1 vessel in 2008, and prior CVA in 2008 with no residual deficits, who was sented to the ED after she had a failed outpatient stress test prior to arrival. The patient had decreased O2 sats and experienced chest pain and dyspnea during the test. She was on the treadmill for less than 2 minutes before she needed to stop. # Acute chest pain, present on admission - Negative trops, however patient has a h/CAD, and was not able to finish the stress test - D-Dimer was positive in ED , however Echo and vitals not indicative of acute PE, suspicion low - continue aspirin and atorvastatin - Dr Bryan (cardiology) consulted, appreciate recs # Acute respiratory failure likely 2/2 COPD exacerbation - She is on 2 L O2 at baseline at home - Continue supplemental oxygen. Goal SpO2 88% - 92%. - has been on 40 mg prednisone daily - No evidence of active infection. Sputum culture : normal kali - Continue duo nebs 4 times a day while awake and albuterol nebs every 2 hours for shortness of breath. - CT ordered - results: 6 mm left apical pulmonary nodule not visualized on prior studies, will need a follow up CT to see the nodule's evolution., Mild centrilobular emphysema and probable early fibrotic changes.. No other findings to explain dyspnea. - V/Q scan : low probability for PE - lipastamosis seems like the reason for her deconditioning and feeling short of breath. - Pulmonology, Dr. Noyola consulted , recs : Taper oral steroids, Aggressive attempt at weight loss.Consider referral to General Surgery for evaluation of her lipomatosis and whether she might be a candidate for debulking surgery. # Elevated d-dimer, present remission active - supsicion for PE very low, this has been a chronic problem - Echo not supicious for PE - negative for DVTs - will get V/Q scan : low probability for PE - pulmonology service consulted, appreciate recs # Anxiety - it seems like patient gets anxious easily - either this is related to her getting short of breath, or vice versa - will do prn anti anxiety meds for now, if work up rules out any other causes, and her anxiety doesnt improve, will need outpatient evaluation for anxiety # Hypertension - adjusted HTN meds - losartan 100 mg QHs - Metoprolol XL 50 QD Chronic Stable Problems: # CVA 2008 # AR 2008 # Hyperlipidemia # Coronary artery disease - Status post stenting 1 in 2008 Dispo: most likely today to assisted living. Pending PT/OT eval. VTE Prophylaxis: Other (Lovenox) VTE Mechanical Devices: Intermittant Pneumatic CD Resuscitation Status: CPR: Attempt Resuscitation Time spent 45 mins. Agusto You MD Sep 25, 2016 10:30
[2016-09-25 11:22] VITALS: PULSE 61; RESP 22; O2SAT 98
--- NOTE | 2016-09-25 12:22 | NUR ---
Evaluation completed. Please go to "Notes" then click on "Assessments and Notes" (bottom left corner of screen). Then select appropriate discipline tab on top of screen.
[2016-09-25 12:32] VITALS: BP 144/82; PULSE 65; RESP 18; O2SAT 89
[2016-09-25] MEDS ORDERED: PRED10TA21 PO (12:49)
--- NOTE | 2016-09-25 12:50 | PCM.DIMED ---
Discharge Instructions Date of Service Sep 25, 2016 Dates of Hospitalization Sep 19, 2016 at 18:34 Discharge Diagnosis Discharge Diagnosis Lipomatosis caused deconditioning Medication Instructions Additional med instructions Prednisone taper Diet Discharge Diet: Heart Healthy, Diabetic Call your provider Call your provider for: Fever or Chills, Shortness of breath, Chest pain, Vomitting Patient Instructions Follow-up Provider: Greg Jackson MD Follow-up with PCP in: 1 week (Please refer to the inpatient discharge summary/ recommendations and reports. Patient will benefit from debulking surgery to assist her breathing. ) Agusto You MD Sep 25, 2016 12:49
--- NOTE | 2016-09-25 13:43 | PCM.DC.MED ---
Discharge Summary Date of Service Sep 25, 2016 Dates of Hospitalization Date of Hospital Admission Sep 19, 2016 at 18:34 Date of Discharge: Sep 25, 2016 Providers: Admitting Physician: Genny Tomas MD Primary Care Physician: Greg Jackson MD Attending Physician: Genny Tomas MD Diagnosis at Time of Discharge Diagnosis at Time of Discharge Lipomatosis caused deconditioning Consultations Pulmonology Procedures XRay, CTs & MRIs Date of Service: 09/19/16 1717 PROCEDURE: X-RAY CHEST, TWO VIEWS Surgical changes and devices: None. Lungs and pleura: No pleural effusions or pneumothorax. Scattered scarring/ atelectasis. There is linear left midlung opacity probably additional platelike atelectasis. Mediastinum: Cardiac silhouette and mediastinal contours are stable. Bones and chest wall: Mild anterior wedging of a midthoracic vertebral body, technically age-indeterminate. Soft tissues appear unremarkable. IMPRESSION: Bibasilar scarring/atelectasis. Dictated by: Padilla Wheeler M.D. on 09/19/2016 at 18:47 Approved by: Padilla Wheeler M.D. on 09/19/2016 at 18:49 Date of Service: 09/19/16 1526 PROCEDURE: X-RAY CHEST ONE VIEW, PORTABLE INDICATIONS: dyspnea Surgical changes and devices: None. Lungs and pleura: The aeration of the lungs is similar to the prior exam. The left diaphragm is not well seen, similar to the prior exam. There may be left basilar atelectasis. No definite pneumothorax is appreciated. The pulmonary vasculature may be slightly prominent. Mediastinum: Mediastinal contours appear normal. Heart size is enlarged. Bones and chest wall: No suspicious bony lesions. Overlying soft tissues appear unremarkable. IMPRESSION: 1. Cardiomegaly with mild vascular congestion. 2. Possible left basilar scarring/atelectasis. Superimposed pneumonia cannot be entirely excluded. Dictated by: Lenny Rodriguez M.D. on 09/19/2016 at 15:05 Approved by: Lenny Rodriguez M.D. on 09/19/2016 at 15:08 Other Diagnostics VQ scan FINDINGS: Very low probability of acute pulmonary embolus. IMPRESSION: Very low probability of acute pulmonary embolus. CT abd/Pelvis IMPRESSION: 1. Findings consistent with overall increased intraperitoneal fat when compared with the study dated 06/08/15, consistent with the patient's diagnosis of intra- abdominal lipomatosis. 2. No acute intra-abdominal findings. The appendix is not visualized; however there are no ancillary findings to suggest acute appendicitis. 3. Diverticulosis. No acute diverticulitis. Brief History 75 yo W h/o CAD admitted with chest pain and dyspnea. Patient is followed by me as outpatient for her coronary artery disease. I saw her about 2 weeks ago for atypical chest pain and ordered a nuclear stress test. She came in for the stress test but could not complete it as she was hypoxic and unable to lay flat. She was sent to emergency room and later admitted to the hospital for further care. On history today, patient states that her chest pain has been constant ongoing for the past few weeks. Her shortness of breath is off-and-on but it significantly debilitates her. Denies lightheadedness or syncope. Patient claims to have gained 25 pounds over the past month but review of records over the past 4 months a NexGen show stable weight. Since she has been in the hospital, she has not felt any better. She had an echocardiogram that showed normal LV function and grade 1 diastolic dysfunction. Her troponins have been unremarkable. PROBLEM LIST: # CAD s/p anterior MS treated with thrombolysis 2003 and rescue PCI of mid LAD with DIMA # COPD: quit smoking 1994 # HTN # HLD # Obese Hospital Course 75 y/o F with history of COPD on 2L O2 at home PRN, hypertension, hyperlipidemia , coronary artery disease s/p MS and stenting X 1 vessel in 2008, and prior CVA in 2008 with no residual deficits, who was sented to the ED after she had a failed outpatient stress test prior to arrival. The patient had decreased O2 sats and experienced chest pain and dyspnea during the test. She was on the treadmill for less than 2 minutes before she needed to stop. # Acute chest pain, present on admission - Negative trops, however patient has a h/CAD, and was not able to finish the stress test - D-Dimer was positive in ED , however Echo and vitals not indicative of acute PE, suspicion low - continue aspirin and atorvastatin - Dr Bryan (cardiology) consulted, appreciate recs # Acute respiratory failure likely 2/2 COPD exacerbation - She is on 2 L O2 at baseline at home - Continue supplemental oxygen. Goal SpO2 88% - 92%. - has been on 40 mg prednisone daily - No evidence of active infection. Sputum culture : normal kali - Continue duo nebs 4 times a day while awake and albuterol nebs every 2 hours for shortness of breath. - CT ordered - results: 6 mm left apical pulmonary nodule not visualized on prior studies, will need a follow up CT to see the nodule's evolution., Mild centrilobular emphysema and probable early fibrotic changes.. No other findings to explain dyspnea. - V/Q scan : low probability for PE - lipastamosis seems like the reason for her deconditioning and feeling short of breath. - Pulmonology, Dr. Noyola consulted , recs : Taper oral steroids, Aggressive attempt at weight loss.Consider referral to General Surgery for evaluation of her lipomatosis and whether she might be a candidate for debulking surgery. # Elevated d-dimer, present remission active - supsicion for PE very low, this has been a chronic problem - Echo not supicious for PE - negative for DVTs - will get V/Q scan : low probability for PE - pulmonology service consulted, appreciate recs # Anxiety - it seems like patient gets anxious easily - either this is related to her getting short of breath, or vice versa - will do prn anti anxiety meds for now, if work up rules out any other causes, and her anxiety doesnt improve, will need outpatient evaluation for anxiety # Hypertension - adjusted HTN meds - losartan 100 mg QHs - Metoprolol XL 50 QD Chronic Stable Problems: # CVA 2008 # MS 2008 # Hyperlipidemia # Coronary artery disease - Status post stenting 1 in 2008 Dispo:o assisted living Exam Vital Signs (Last) Date Time Temp Pulse Resp B/P Pulse Ox O2 Delivery O2 Flow Rate FiO2 09/25/16 12:32 36.7 65 18 144/82 89 Room Air 09/25/16 11:22 2.00 Test 09/19/16 15:08 09/19/16 16:23 09/19/16 19:35 09/20/16 05:15 Hold Urine Received (Received) D-Dimer 1.47mg/L FEU (<0.50) Magnesium Level 1.9mg/dL (1.6-2.6) Hold Hunter Top Tube Received (Received) Urine Color Yellow (YELLOW) Urine Appearance Clear (CLEAR,HAZY) Urine pH 6.5 (5.0-8.0) Urine Specific [place] 1.005 (1.003-1.035) Urine Protein Negativemg/dL (NEG,TRACE) Urine Glucose (UA) Negativemg/dL (NEGATIVE) Urine Ketones Negativemg/dL (NEGATIVE) Urine Occult Blood Negative (NEGATIVE) Urine Nitrite Negative (NEGATIVE) Urine Bilirubin Negative (NEGATIVE) Urine Urobilinogen Normalmg/dL (NORMAL) Urine Leukocyte Esterase Negative (NEGATIVE) Urine RBC 0-2/hpf (0-2) Urine WBC 0-5/hpf (0-5) Urine Epithelial Cells Few/hpf (NONE-MOD) Urine Crystals None seen (NONE SEEN) Urine Bacteria Few/hpf (NONE-FEW) Urine Hyaline Casts None/lpf (NONE) Urine Granular Casts None seen (NONE SEEN) Urine Waxy Casts None seen (NONE SEEN) Urine Red Blood Cell Casts None seen (NONE SEEN) Urine White Blood Cell Casts None seen (NONE SEEN) Urine Mucus None seen (None Seen) Urine Trichomonas None seen (NONE SEEN) Urine Yeast None (NONE SEEN) Urinalysis Comment None Urine Culture Reflexed Not indicated Total Bilirubin 0.4mg/dL (0.0-1.2) Aspartate Amino Transf (AST/SGOT) 18U/L (0-50) Alanine Aminotransferase (ALT/SGPT) 16U/L (0-32) Alkaline Phosphatase 87U/L (25-165) Troponin T < 0.010ug/L (0.0-0.011) Total Protein 7.2g/dL (6.4-8.4) Albumin 4.0g/dL (3.4-5.0) Test 09/22/16 05:31 09/23/16 05:13 09/24/16 05:12 09/25/16 05:20 Activated Partial Thromboplast Time 23.1sec (22.8-33.0) Pro-B-Type Natriuretic Peptide 164.2pg/mL (0-738) Procalcitonin 0.03ng/mL (0.00-0.08) White Blood Count 10.7th/mm3 (3.8-10.1) Red Blood Count 4.06mil/mm3 (3.90-5.20) Hemoglobin 13.4g/dL (12.0-15.6) Hematocrit 42.3% (35.0-46.0) Mean Corpuscular Volume 104.2fL (81-100) Mean Corpuscular Hemoglobin 33.0pg (27.0-35.0) Mean Corpuscular Hemoglobin Concent 31.7% (32.0-37.0) Red Cell Distribution Width 13.4% (12.3-15.4) Platelet Count 246bil/L (150-400) Neutrophils (%) (Auto) 69.3% (40-74) Lymphocytes (%) (Auto) 18.4% (14-46) Monocytes (%) (Auto) 11.0% (4-12) Eosinophils (%) (Auto) 0.7% (0-5) Basophils (%) (Auto) 0.2% (0-3) Sodium Level 141mEq/L (134-144) Potassium Level 4.4mEq/L (3.5-5.2) Chloride Level 102mEq/L (97-108) Carbon Dioxide Level 24mmol/L (18-29) Blood Urea Nitrogen 15mg/dL (8-27) Creatinine 0.59mg/dL (0.57-1.00) Estimat Glomerular Filtration Rate 142mL/min (>59) Glucose Level 106mg/dL (60-99) Calcium Level 9.2mg/dL (8.5-10.1) Discharge Medications Discharge Medications Budesonide/Formoterol 160-4.5 mcg Inh (Symbicort 160-4.5 mcg Inh) 120 Puff Inhaler 2 PUFF INHALATION BID (Reported) Duloxetine (Duloxetine) 20 Mg Capsule.dr 20 MG PO DAILY (Reported) Ipratropium [place] (Ipratropium [place] Inhalant Solution) 0.2 Mg/1 Ml Solution 0.02 MG IH QID (Reported) Levalbuterol (Levalbuterol) 1.25 Mg/3 Ml Vial.neb 1.25 MG INHALATION QID ( Reported) Losartan Potassium (Losartan Potassium) 100 Mg Tablet 100 MG PO HS (Reported) Metoprolol Succinate ER (Metoprolol Succinate ER) 50 Mg Tab.er.24h 50 MG PO HS ( Reported) Prednisone (PredniSONE Dose Senthil) 10 Mg Tab.ds.pk 1 TABLET PO UD TAKE DIRECTED ON PACKAGE OR BY PHYSICIAN Prescribed by: GENNY TOMAS MD Ranitidine (Ranitidine) 150 Mg Capsule 150 MG PO BID (Reported) Rosuvastatin Calcium (Rosuvastatin Calcium) 10 Mg Tablet 10 MG PO HS (Reported) As needed Levalbuterol Tartrate (Levalbuterol Tartrate Hfa) 45 Mcg/Actuation Hfa.aer.ad 15 GM IH QID PRN PRN For Cough (Reported) Miscellaneous Medications Carboxymethylcellulose Sodium (Refresh Tears) 15 Ml Drops 1 DROP BOTH_EYES ( Reported) Additional med instructions Prednisone taper Followup Plan Discharge Diet: Heart Healthy, Diabetic Follow-up Provider: Greg Jackson MD Follow-up with PCP in: 1 week (Please refer to the inpatient discharge summary/ recommendations and reports. Patient will benefit from debulking surgery to assist her breathing. ) Genny Tomas MD Sep 25, 2016 13:43
--- NOTE | 2016-09-25 13:47 | NUR ---
Social Work: Discharge / Multidisciplinary Rounds Data: Pt is on day 6 of hospitalization. EMR reviewed. D/C orders are in. PT met with pt this morning, no further PT needs recommended. MD states pt has no further d/c needs. Pt from [facility] and will return there today via POV with home O2 through [place]. Assessment: Pt who is independent at baseline. Plan: Pt from [facility] and will return there today via POV with home O2 through [place]. No further d/c needs, BPM DEVELOPER will continue to follow if needs arise. AMY Aguilera
== END 2016-09-25 14:54 | disposition home or self-care (01) | DRG 190 ==
LOC: SED 14:37 → MPC 18:34
PROVIDERS: ADMIT Internal Medicine; ATTEND Internal Medicine
PROC: 4A033R1 Measurement of Arterial Saturation, Peripheral, Percutaneous Approach (ICD-10-PCS; principal; 2016-09-24)
DX: J44.1 Chronic obstructive pulmonary disease with (acute) exacerbation (principal); J96.00 Acute respiratory failure, unspecified whether with hypoxia or hypercapnia; E88.2 Lipomatosis, not elsewhere classified; I10 Essential (primary) hypertension; E78.5 Hyperlipidemia, unspecified; I25.10 Atherosclerotic heart disease of native coronary artery without angina pectoris; F41.9 Anxiety disorder, unspecified; R07.9 Chest pain, unspecified; Z95.5 Presence of coronary angioplasty implant and graft; Z88.0 Allergy status to penicillin; Z79.51 Long term (current) use of inhaled steroids; Z87.891 Personal history of nicotine dependence; Z99.81 Dependence on supplemental oxygen; Z86.73 Personal history of transient ischemic attack (TIA), and cerebral infarction without residual deficits; I25.2 Old myocardial infarction